=== PATIENT | male | born 1980 | race Caucasian/White ===

== ENCOUNTER 2017-07-25 15:43 | Inpatient (IN) | payer OTHER ==
[2017-07-25 17:33] VITALS: BMI 21.9
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
[2017-07-25] MEDS ORDERED: NICOTINE POLACRILEX 2 MG GUM BC PRN (20:34)
[2017-07-25] MEDS ORDERED: MAGNESIUM HYDROX 2400MG/30ML ORAL SUSPENSION 30 ML CUP PO PRN (20:34)
[2017-07-25] MEDS ORDERED: MAG HYDROX/AL HYDROX/SIMETH 30 ML UNIT-DOSE CUP PO PRN (20:34)
[2017-07-25] MEDS ORDERED: MENTHOL/PHENOL 1 EACH UD MM PRN (20:34)
[2017-07-25] MEDS ORDERED: ACETAMINOPHEN 325 MG TABLET (FP) PO PRN (20:34)
[2017-07-25] MEDS ORDERED: diphenhydrAMINE HCL 50 MG CAPSULE PO PRN (20:34)
[2017-07-25] MEDS ORDERED: guaiFENesin/D-METHORPHAN HB 10 ML UNIT-DOSE CUPS PO PRN (20:34)
[2017-07-25] MEDS ORDERED: METHADONE HCL 10 MG TABLET (FOR DETOX USE ONLY) PO ONE ×2 (20:34→23:00)
[2017-07-25] MEDS ORDERED: hydrOXYzine PAMOATE 50 MG CAPSULE (FP) PO PRN (20:34)
[2017-07-25] MEDS ORDERED: LOPERAMIDE HCL 2 MG CAPSULE PO PRN (20:34)
[2017-07-25] MEDS ORDERED: IBUPROFEN 400 MG TABLET (FP) PO PRN (20:34)
[2017-07-25] MEDS ORDERED: MAGNESIUM CITRATE 300 ML BOTTLE PO PRN (20:34)
[2017-07-25] MEDS ORDERED: P-EPHED 60MG/TRIPROLIDI 2.5MG TABLET PO PRN (20:34)
[2017-07-25] MEDS ORDERED: METHADONE HCL 10 MG TABLET (FOR DETOX USE ONLY) ONE (22:39)
[2017-07-25] MEDS: THIAMINE HCL 100 MG TABLET (FP) PO SCH (22:40)
[2017-07-25] MEDS: diazePAM 5 MG TABLET PO PRN (22:41)
[2017-07-26 01:24] LABS: URINE APPEARANCE SLCLOUDY; URINE BILIRUBIN NEGATIVE (NEGATIVE); URINE BLOOD NEGATIVE (NEGATIVE); URINE COLOR YELLOW; URINE GLUCOSE (UA) NEGATIVE (NEGATIVE); URINE KETONE NEGATIVE (NEGATIVE); URINE NITRITE NEGATIVE (NEGATIVE); URINE PROTEIN NEGATIVE (NEGATIVE)
[2017-07-26 08:46] LABS: URINE LEUK ESTERASE Negative (NEGATIVE)
[2017-07-26] MEDS ORDERED: METHADONE HCL 10 MG TABLET (FOR DETOX USE ONLY) PO ONE (10:00)
[2017-07-26 10:19] LABS: MCH 26.4 pg (25.7-33.7); MCHC 31.9 g/dl (32.0-35.9); MEAN CELL VOLUME 82.7 fl (80-96); MEAN PLT VOLUME 9.1 fl (7.5-11.1); PLATELET COUNT 229 K/MM3 (134-434); RDW 15.9 % (11.9-15.9); WHITE BLOOD COUNT 6.6 K/mm3 (4.0-10.0)
[2017-07-26 10:32] LABS: ANION GAP 6 (8-16); CALCIUM 8.4 mg/dL (8.5-10.1); CO2 33 mmol/L (21-32); GLUCOSE,RANDOM 99 mg/dL (74-106)
[2017-07-26 10:36] LABS: ALK PHOS 119 U/L (45-117); BILIRUBIN,TOTAL 0.9 mg/dL (0.2-1.0); CREATININE 0.8 mg/dL (0.7-1.3); SGOT/AST 103 U/L (15-37); SGPT/ALT 298 U/L (12-78); TOT PROT 6.3 g/dl (6.4-8.2)
--- NOTE | 2017-07-26 10:45 | EKG ---
Test Reason : Blood Pressure : / mmHG Vent. Rate : 069 BPM Atrial Rate : 069 BPM P-R Int : 112 ms QRS Dur : 098 ms QT Int : 374 ms P-R-T Axes : 056 073 034 degrees QTc Int : 400 ms NORMAL SINUS RHYTHM VOLTAGE CRITERIA FOR LEFT VENTRICULAR HYPERTROPHY ABNORMAL ECG NO PREVIOUS ECGS AVAILABLE Confirmed by BENIGNO BENITEZ MD ([id number]) on 07/26/2017 10:45:08 AM Referred By: Confirmed By:BENIGNO BENITEZ MD
[2017-07-26] MEDS: PRENATAL VITAMINS W/ FOLIC ACID TABLET (FP) PO SCH (10:55)
--- NOTE | 2017-07-26 10:59 | PN ---
S CIWA - CIWA Score Nausea/Vomitin Muscle Tremors: 3 Anxiety: 3 Agitation: 2 Paroxysmal Sweats: 1-Minimal Palms Moist Orientation: 0-Oriented Tacttile Disturbances: 1-Very Mild Itch/Numbness Auditory Disturbances: 1-Very Mild Visual Disturbances: 0-None Headache: 2-Mild CIWA-Ar Total Score: 16 BHS COWS - Scale Resting Pulse: 0= [place] 80 or Below Sweatin= Chills/Flushing Restless Observation: 3= Extraneous Movement Pupil Size: 1= Pupils >than Normal Bone or Joint Aches: 2= Severe Diffuse Aches Runny Nose/ Eye Tearin= Runny Nose/Eyes GI Upset > 30mins: 3= Vomiting/Diarrhea Tremor Observation of Outstretched Hands: 2= Slight Tremor Visible Yawning Observation: 1= 1-2x During Session Anxiety or Irritability: 2=Irritable/Anxious Goose Flesh Skin: 0=Smooth Skin COWS Score: 17 S Progress Note (SOAP) Subjective: alert,irritable,anxious,interrupted sleep,tremor,tremor,pain in body,joint and back Objective: 07/26/17 10:57 Vital Signs Temperature 96.6 F L 07/26/17 10:00 Pulse Rate 69 07/26/17 10:00 Respiratory Rate 18 07/26/17 10:00 Blood Pressure 111/65 07/26/17 10:00 O2 Sat by Pulse Oximetry (%) ekg nsr lvh no chest pain,no sob,no dizziness Laboratory Last Values WBC 6.6 K/mm3 (4.0-10.0) 07/26/17 07:00 RBC 4.62 M/mm3 (4.00-5.60) 07/26/17 07:00 Hgb 12.2 GM/dL (11.7-16.9) 07/26/17 07:00 Hct 38.3 % (35.4-49) 07/26/17 07:00 MCV 82.7 fl (80-96) 07/26/17 07:00 MCH 26.4 pg (25.7-33.7) 07/26/17 07:00 MCHC 31.9 g/dl (32.0-35.9) L 07/26/17 07:00 RDW 15.9 % (11.9-15.9) 07/26/17 07:00 Plt Count 229 K/MM3 (134-434) 07/26/17 07:00 MPV 9.1 fl (7.5-11.1) 07/26/17 07:00 Sodium 141 mmol/L (136-145) 07/26/17 07:00 Potassium 3.8 mmol/L (3.5-5.1) 07/26/17 07:00 Chloride 102 mmol/L (98-107) 07/26/17 07:00 Carbon Dioxide 33 mmol/L (21-32) H 07/26/17 07:00 Anion Gap 6 (8-16) L 07/26/17 07:00 BUN 26 mg/dL (7-18) H 07/26/17 07:00 Creatinine 0.8 mg/dL (0.7-1.3) 07/26/17 07:00 Creat Clearance w eGFR > 60 (>60) 07/26/17 07:00 Random Glucose 99 mg/dL (74-106) 07/26/17 07:00 Calcium 8.4 mg/dL (8.5-10.1) L 07/26/17 07:00 Total Bilirubin 0.9 mg/dL (0.2-1.0) 07/26/17 07:00 AST 103 U/L (15-37) H 07/26/17 07:00 ALT 298 U/L (12-78) H 07/26/17 07:00 Alkaline Phosphatase 119 U/L (45-117) H 07/26/17 07:00 Total Protein 6.3 g/dl (6.4-8.2) L 07/26/17 07:00 Albumin 3.0 g/dl (3.4-5.0) L 07/26/17 07:00 Urine Color Yellow 07/25/17 22:39 Urine Appearance Slcloudy 07/25/17 22:39 Urine pH 7.0 (5.0-8.0) 07/25/17 22:39 Ur Specific [place] 1.015 (1.005-1.025) 07/25/17 22:39 Urine Protein Negative (NEGATIVE) 07/25/17 22:39 Urine Glucose (UA) Negative (NEGATIVE) 07/25/17 22:39 Urine Ketones Negative (NEGATIVE) 07/25/17 22:39 Urine Blood Negative (NEGATIVE) 07/25/17 22:39 Urine Nitrite Negative (NEGATIVE) 07/25/17 22:39 Urine Bilirubin Negative (NEGATIVE) 07/25/17 22:39 Urine Urobilinogen 2.0 mg/dL (0.2-1.0) 07/25/17 22:39 Ur Leukocyte Esterase Negative (NEGATIVE) 07/25/17 22:39 Assessment: 07/26/17 10:59 withdrawal symptom Plan: continue detox,d/c tylenol for elevation of alt,ast,repeat alt,ast,inr in am
--- NOTE | 2017-07-26 16:32 | CONSULT ---
[facility] Psychiatric Consult - Data Date of interview: 07/26/17 Admission source: [facility] Identifying data: This is 37 years old male with no psychiatric hospitalization history intoxicated with: Cannabis, Opioids and Xanax Substance Abuse History: - Smoking Cessation. Smoking history: Current every day smoker. Have you smoked in the past 12 months: Yes. Aproximately how many cigarettes per day: 5. Hx Chewing Tobacco Use: No. Initiated information on smoking cessation: Yes. 'Breaking Loose' booklet given: 07/25/17. - Substance & Tx. History. Hx Alcohol Use: No. Hx Substance Use: Yes (Heroin, Marjuana). Substance Use Type: Heroin. Hx Substance Use Treatment: Yes ([facility] - Substances Abused. Heroin. Route: Injection. Frequency: Daily. Amount used: 15 bags. Age of first use: 35. Date of Last Use: 07/25/17. Marijuana/Hashish. Route: Smoking. Frequency: Daily. Amount used: 5 grams. Age of first use: 12. Date of Last Use: 07/24/17 Medical History: Denioes significant medical problem Psychiatric History: Patient rep[orts insomnia, reports taking prior to admission:'Remeron 15mg po qhs Physical/Sexual Abuse/Trauma History: Denies Additional Comment: Remeron 15mg po qhs Mental Status Exam - Mental Status Exam Alert and Oriented to: Person Cognitive Function: Fair Patient Appearance: Unkempt Mood: Euthymic Affect: Mood Congruent Patient Behavior: Cooperative Speech Pattern: Appropriate Voice Loudness: Normal Thought Process: Goal Oriented Thought Disorder: Being Controlled Hallucinations: Denies Suicidal Ideation: Denies Homicidal Ideation: Denies Insight/Judgement: Fair Sleep: Difficulty falling asleep Appetite: Weight loss Muscle strength/Tone: Normal Gait/Station: Normal Additional Comments: Remeron 15mg po qhs Psychiatric Findings - Problem List ([place] 1, 2,3) (1) Cannabis dependence, uncomplicated Current Visit: Yes Status: Acute (2) Opioid dependence with withdrawal Current Visit: Yes Status: Acute (3) Sedative, hypnotic or anxiolytic dependence with withdrawal, uncomplicated Current Visit: Yes Status: Acute - Initial Treatment Plan Initial Treatment Plan: Remeron 15mg po qhs
[2017-07-26] MEDS: MIRTAZAPINE 15 MG TABLET (FP) PO SCH (22:56)
[2017-07-26] MEDS: THIAMINE HCL 100 MG TABLET (FP) PO SCH (22:56)
[2017-07-27] MEDS ORDERED: METHADONE HCL 5 MG TABLET (FOR DETOX USE ONLY) PO ONE (10:00)
[2017-07-27 10:03] LABS: SGOT/AST 40 U/L (15-37); SGPT/ALT 188 U/L (12-78)
[2017-07-27 10:38] LABS: INR 0.89 (0.82-1.09); PROTHROMBIN TIME (PATIENT) 10.1 SEC (9.98-11.88)
[2017-07-27] MEDS: PRENATAL VITAMINS W/ FOLIC ACID TABLET (FP) PO SCH (11:11)
--- NOTE | 2017-07-27 11:42 | PN ---
S CIWA - CIWA Score Nausea/Vomitin Muscle Tremors: 3 Anxiety: 2 Agitation: 2 Paroxysmal Sweats: 1-Minimal Palms Moist Orientation: 0-Oriented Tacttile Disturbances: 1-Very Mild Itch/Numbness Auditory Disturbances: 1-Very Mild Visual Disturbances: 0-None Headache: 2-Mild CIWA-Ar Total Score: 15 BHS COWS - Scale Resting Pulse: 0= [place] 80 or Below Sweatin= Chills/Flushing Restless Observation: 3= Extraneous Movement Pupil Size: 1= Pupils >than Normal Bone or Joint Aches: 2= Severe Diffuse Aches Runny Nose/ Eye Tearin= Runny Nose/Eyes GI Upset > 30mins: 2= Nausea/Diarrhea Tremor Observation of Outstretched Hands: 2= Slight Tremor Visible Yawning Observation: 1= 1-2x During Session Anxiety or Irritability: 2=Irritable/Anxious Goose Flesh Skin: 0=Smooth Skin COWS Score: 16 S Progress Note (SOAP) Subjective: ALERT,IRRITABLE,ANXIOUS,INTERRUPTED SLEEP,TREMOR,PAIN IN THE BODY AND BACK Objective: 07/27/17 11:39 Vital Signs Temperature 97.3 F L 07/27/17 06:00 Pulse Rate 67 07/27/17 10:00 Respiratory Rate 18 07/27/17 10:00 Blood Pressure 128/78 07/27/17 10:00 O2 Sat by Pulse Oximetry (%) 07/27/17 11:40 07/27/17 11:40 Laboratory Last Values WBC 6.6 K/mm3 (4.0-10.0) 07/26/17 07:00 RBC 4.62 M/mm3 (4.00-5.60) 07/26/17 07:00 Hgb 12.2 GM/dL (11.7-16.9) 07/26/17 07:00 Hct 38.3 % (35.4-49) 07/26/17 07:00 MCV 82.7 fl (80-96) 07/26/17 07:00 MCH 26.4 pg (25.7-33.7) 07/26/17 07:00 MCHC 31.9 g/dl (32.0-35.9) L 07/26/17 07:00 RDW 15.9 % (11.9-15.9) 07/26/17 07:00 Plt Count 229 K/MM3 (134-434) 07/26/17 07:00 MPV 9.1 fl (7.5-11.1) 07/26/17 07:00 PT with INR 10.10 SEC (9.98-11.88) 07/27/17 07:00 INR 0.89 (0.82-1.09) 07/27/17 07:00 Sodium 141 mmol/L (136-145) 07/26/17 07:00 Potassium 3.8 mmol/L (3.5-5.1) 07/26/17 07:00 Chloride 102 mmol/L (98-107) 07/26/17 07:00 Carbon Dioxide 33 mmol/L (21-32) H 07/26/17 07:00 Anion Gap 6 (8-16) L 07/26/17 07:00 BUN 26 mg/dL (7-18) H 07/26/17 07:00 Creatinine 0.8 mg/dL (0.7-1.3) 07/26/17 07:00 Creat Clearance w eGFR > 60 (>60) 07/26/17 07:00 Random Glucose 99 mg/dL (74-106) 07/26/17 07:00 Calcium 8.4 mg/dL (8.5-10.1) L 07/26/17 07:00 Total Bilirubin 0.9 mg/dL (0.2-1.0) 07/26/17 07:00 AST 40 U/L (15-37) H D 07/27/17 07:00 ALT 188 U/L (12-78) H D 07/27/17 07:00 Alkaline Phosphatase 119 U/L (45-117) H 07/26/17 07:00 Total Protein 6.3 g/dl (6.4-8.2) L 07/26/17 07:00 Albumin 3.0 g/dl (3.4-5.0) L 07/26/17 07:00 Urine Color Yellow 07/25/17 22:39 Urine Appearance Slcloudy 07/25/17 22:39 Urine pH 7.0 (5.0-8.0) 07/25/17 22:39 Ur Specific [place] 1.015 (1.005-1.025) 07/25/17 22:39 Urine Protein Negative (NEGATIVE) 07/25/17 22:39 Urine Glucose (UA) Negative (NEGATIVE) 07/25/17 22:39 Urine Ketones Negative (NEGATIVE) 07/25/17 22:39 Urine Blood Negative (NEGATIVE) 07/25/17 22:39 Urine Nitrite Negative (NEGATIVE) 07/25/17 22:39 Urine Bilirubin Negative (NEGATIVE) 07/25/17 22:39 Urine Urobilinogen 2.0 mg/dL (0.2-1.0) 07/25/17 22:39 Ur Leukocyte Esterase Negative (NEGATIVE) 07/25/17 22:39 RPR Titer Nonreactive (NONREACTIVE) 07/26/17 07:00 Assessment: 07/27/17 11:41 WITHDRAWAL SYMPTOM Plan: CONTINUE DETOX,D/C TYLENOL FOR ELEVATION OF ALT,AST,REPEAT AST,ALT,INR IN AM
[2017-07-27] MEDS: diazePAM 5 MG TABLET PO PRN (22:22)
[2017-07-27] MEDS: THIAMINE HCL 100 MG TABLET (FP) PO SCH (22:22)
[2017-07-27] MEDS: MIRTAZAPINE 15 MG TABLET (FP) PO SCH (22:22)
[2017-07-28] MEDS ORDERED: METHADONE HCL 5 MG TABLET (FOR DETOX USE ONLY) PO ONE (10:00)
[2017-07-28] MEDS: PRENATAL VITAMINS W/ FOLIC ACID TABLET (FP) PO SCH (10:35)
[2017-07-28 11:15] LABS: INR 0.88 (0.82-1.09); PROTHROMBIN TIME (PATIENT) 9.9 SEC (9.98-11.88)
[2017-07-28 11:25] LABS: SGOT/AST 37 U/L (15-37); SGPT/ALT 160 U/L (12-78)
--- NOTE | 2017-07-28 12:35 | PN ---
S Progress Note (SOAP) Subjective: ALERT,IRRITABLE,ANXIOUS,INTERRUPTED SLEEP Objective: 07/28/17 12:32 Vital Signs Temperature 99.8 F H 07/28/17 10:21 Pulse Rate 76 07/28/17 10:21 Respiratory Rate 16 07/28/17 10:21 Blood Pressure 127/84 07/28/17 10:21 O2 Sat by Pulse Oximetry (%) 07/28/17 12:33 Abnormal Lab Results 07/28/17 07/28/17 07:50 07:50 PT with INR 9.90 L ALT 160 H 07/28/17 12:33 Laboratory Last Values WBC 6.6 K/mm3 (4.0-10.0) 07/26/17 07:00 RBC 4.62 M/mm3 (4.00-5.60) 07/26/17 07:00 Hgb 12.2 GM/dL (11.7-16.9) 07/26/17 07:00 Hct 38.3 % (35.4-49) 07/26/17 07:00 MCV 82.7 fl (80-96) 07/26/17 07:00 MCH 26.4 pg (25.7-33.7) 07/26/17 07:00 MCHC 31.9 g/dl (32.0-35.9) L 07/26/17 07:00 RDW 15.9 % (11.9-15.9) 07/26/17 07:00 Plt Count 229 K/MM3 (134-434) 07/26/17 07:00 MPV 9.1 fl (7.5-11.1) 07/26/17 07:00 PT with INR 9.90 SEC (9.98-11.88) L 07/28/17 07:50 INR 0.88 (0.82-1.09) 07/28/17 07:50 Sodium 141 mmol/L (136-145) 07/26/17 07:00 Potassium 3.8 mmol/L (3.5-5.1) 07/26/17 07:00 Chloride 102 mmol/L (98-107) 07/26/17 07:00 Carbon Dioxide 33 mmol/L (21-32) H 07/26/17 07:00 Anion Gap 6 (8-16) L 07/26/17 07:00 BUN 26 mg/dL (7-18) H 07/26/17 07:00 Creatinine 0.8 mg/dL (0.7-1.3) 07/26/17 07:00 Creat Clearance w eGFR > 60 (>60) 07/26/17 07:00 Random Glucose 99 mg/dL (74-106) 07/26/17 07:00 Calcium 8.4 mg/dL (8.5-10.1) L 07/26/17 07:00 Total Bilirubin 0.9 mg/dL (0.2-1.0) 07/26/17 07:00 AST 37 U/L (15-37) 07/28/17 07:50 ALT 160 U/L (12-78) H 07/28/17 07:50 Alkaline Phosphatase 119 U/L (45-117) H 07/26/17 07:00 Total Protein 6.3 g/dl (6.4-8.2) L 07/26/17 07:00 Albumin 3.0 g/dl (3.4-5.0) L 07/26/17 07:00 Urine Color Yellow 07/25/17 22:39 Urine Appearance Slcloudy 07/25/17 22:39 Urine pH 7.0 (5.0-8.0) 07/25/17 22:39 Ur Specific [place] 1.015 (1.005-1.025) 07/25/17 22:39 Urine Protein Negative (NEGATIVE) 07/25/17 22:39 Urine Glucose (UA) Negative (NEGATIVE) 07/25/17 22:39 Urine Ketones Negative (NEGATIVE) 07/25/17 22:39 Urine Blood Negative (NEGATIVE) 07/25/17 22:39 Urine Nitrite Negative (NEGATIVE) 07/25/17 22:39 Urine Bilirubin Negative (NEGATIVE) 07/25/17 22:39 Urine Urobilinogen 2.0 mg/dL (0.2-1.0) 07/25/17 22:39 Ur Leukocyte Esterase Negative (NEGATIVE) 07/25/17 22:39 RPR Titer Nonreactive (NONREACTIVE) 07/26/17 07:00 Assessment: 07/28/17 12:34 WITHDRAWAL SYMPTOM Plan: CONTINUE DETOX
[2017-07-28] MEDS: MIRTAZAPINE 15 MG TABLET (FP) PO SCH (22:32)
[2017-07-28] MEDS: THIAMINE HCL 100 MG TABLET (FP) PO SCH (22:32)
[2017-07-29] MEDS ORDERED: METHADONE HCL 10 MG TABLET (FOR DETOX USE ONLY) PO ONE (10:00)
[2017-07-29] MEDS: PRENATAL VITAMINS W/ FOLIC ACID TABLET (FP) PO SCH (10:39)
--- NOTE | 2017-07-29 11:50 | PN ---
[facility] Progress Note (SOAP) Subjective: ALERT,IRRITABLE,ANXIOUS,INTERRUPTED SLEEP,PAIN IN THE BODY Objective: 07/29/17 11:49 Vital Signs Temperature 97.0 F L 07/29/17 10:00 Pulse Rate 67 07/29/17 10:00 Respiratory Rate 18 07/29/17 10:00 Blood Pressure 128/82 07/29/17 10:00 O2 Sat by Pulse Oximetry (%) 07/29/17 11:49 Assessment: 07/29/17 11:49 WITHDRAWAL SYMPTOM Plan: CONTINUE DETOX,DISCHARGE IN AM
[2017-07-29] MEDS: THIAMINE HCL 100 MG TABLET (FP) PO SCH (22:27)
[2017-07-29] MEDS: MIRTAZAPINE 15 MG TABLET (FP) PO SCH (22:27)
[2017-07-30] MEDS ORDERED: METHADONE HCL 5 MG TABLET (FOR DETOX USE ONLY) PO ONE (06:00)
--- NOTE | 2017-07-30 08:30 | DS ---
[facility] Detox Discharge Summary Admission Date: 07/25/17 Discharge Date: 07/30/17 - History Present History: Cannabis Dependence, Opioid Dependence, Sedative Dependence Pertinent Past History: ASTHMA SEIZURE - Physical Exam Results Vital Signs: Vital Signs Temperature 97.9 F 07/30/17 06:11 Pulse Rate 64 07/30/17 06:11 Respiratory Rate 16 07/30/17 06:11 Blood Pressure 106/64 07/30/17 06:11 O2 Sat by Pulse Oximetry (%) Pertinent Admission Physical Exam Findings: WITHDRAWAL FINDING - Treatment Hospital Course: Detox Protocol Followed, Detoxed Safely, Responded well, Discharged Condition Good, Rehab Referral Accepted - Medication Discharge Medications: Ambulatory Orders Mirtazapine [Remeron -] 15 mg PO HS #30 tablet 07/26/17 - Diagnosis (1) Opioid dependence with withdrawal Current Visit: Yes Status: Acute (2) Cannabis dependence, uncomplicated Current Visit: Yes Status: Acute (3) Sedative, hypnotic or anxiolytic dependence with withdrawal, uncomplicated Current Visit: Yes Status: Acute (4) Asthma Current Visit: No Status: Chronic (5) Seizure Current Visit: No Status: Chronic - AMA Did Patient Leave Against Medical Advice: No
[2017-07-30 09:38] VITALS: BP 117/75; PULSE 73; TEMP 97
[2017-07-30] MEDS: PRENATAL VITAMINS W/ FOLIC ACID TABLET (FP) PO SCH (10:33)
== END 2017-07-30 11:34 | disposition home or self-care (01) | DRG 773 ==
LOC: YASAS 15:43 → Y6N 21:10
PROVIDERS: ADMIT Internal Medicine; ATTEND Internal Medicine
PROC: HZ2ZZZZ Detoxification Services for Substance Abuse Treatment (ICD-10-PCS; principal; 2017-07-25)
DX: F11.23 Opioid dependence with withdrawal (principal); F13.230 Sedative, hypnotic or anxiolytic dependence with withdrawal, uncomplicated; F12.20 Cannabis dependence, uncomplicated; J45.909 Unspecified asthma, uncomplicated; Z86.69 Personal history of other diseases of the nervous system and sense organs
CPT/HCPCS: 36415; 80053; 81003; 84450; 84460; 85027; 85610; 86593; 93005; 93010

== ENCOUNTER 2017-11-02 12:05 | Inpatient (IN) | payer OTHER ==
[2017-11-02 14:06] VITALS: BMI 22.8
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
[2017-11-02] MEDS ORDERED: MENTHOL/PHENOL 1 EACH UD MM PRN (17:31)
[2017-11-02] MEDS ORDERED: P-EPHED 60MG/TRIPROLIDI 2.5MG TABLET PO PRN (17:31)
[2017-11-02] MEDS ORDERED: IBUPROFEN 400 MG TABLET (FP) PO PRN (17:31)
[2017-11-02] MEDS ORDERED: MAG HYDROX/AL HYDROX/SIMETH 30 ML UNIT-DOSE CUP PO PRN (17:31)
[2017-11-02] MEDS ORDERED: MAGNESIUM CITRATE 300 ML BOTTLE PO PRN (17:31)
[2017-11-02] MEDS ORDERED: guaiFENesin/D-METHORPHAN HB 10 ML UNIT-DOSE CUPS PO PRN (17:31)
[2017-11-02] MEDS ORDERED: MAGNESIUM HYDROX 2400MG/30ML ORAL SUSPENSION 30 ML CUP PO PRN (17:31)
[2017-11-02] MEDS ORDERED: LOPERAMIDE HCL 2 MG CAPSULE PO PRN (17:31)
[2017-11-02] MEDS ORDERED: ACETAMINOPHEN 325 MG TABLET (FP) PO PRN (17:31)
[2017-11-02] MEDS ORDERED: ALBUTEROL SO4 18 GM HFA INHALER IH PRN (17:37)
[2017-11-02] MEDS: diazePAM 5 MG TABLET PO PRN (18:59)
[2017-11-02] MEDS ORDERED: METHADONE HCL 10 MG TABLET (FOR DETOX USE ONLY) PO ONE ×2 (19:00→23:00)
[2017-11-02] MEDS: THIAMINE HCL 100 MG TABLET (FP) PO SCH (23:04)
[2017-11-03 02:11] LABS: URINE APPEARANCE TURBID; URINE BILIRUBIN NEGATIVE (NEGATIVE); URINE BLOOD NEGATIVE (NEGATIVE); URINE COLOR YELLOW; URINE GLUCOSE (UA) NEGATIVE (NEGATIVE); URINE KETONE NEGATIVE (NEGATIVE); URINE LEUK ESTERASE NEGATIVE (NEGATIVE); URINE NITRITE NEGATIVE (NEGATIVE)
[2017-11-03 02:16] LABS: URINE PROTEIN 1+ (NEGATIVE)
[2017-11-03] MEDS ORDERED: METHADONE HCL 10 MG TABLET (FOR DETOX USE ONLY) PO ONE (10:00)
--- NOTE | 2017-11-03 10:45 | PN ---
BHS COWS - Scale Resting Pulse: 0= [place] 80 or Below Sweatin= Chills/Flushing Restless Observation: 3= Extraneous Movement Pupil Size: 1= Pupils >than Normal Bone or Joint Aches: 2= Severe Diffuse Aches Runny Nose/ Eye Tearin= Runny Nose/Eyes GI Upset > 30mins: 2= Nausea/Diarrhea Tremor Observation of Outstretched Hands: 2= Slight Tremor Visible Yawning Observation: 1= 1-2x During Session Anxiety or Irritability: 2=Irritable/Anxious Goose Flesh Skin: 0=Smooth Skin COWS Score: 16 S Progress Note (SOAP) Subjective: ALERT,IRRITABLE,ANXIOUS,INTERRUPTED SLEEP,TREMOR,PAIN IN THE BODY AND BACK Objective: 11/03/17 10:42 Vital Signs Temperature 98.1 F 11/03/17 10:05 Pulse Rate 74 11/03/17 10:05 Respiratory Rate 16 11/03/17 10:05 Blood Pressure 126/71 11/03/17 10:05 O2 Sat by Pulse Oximetry (%) 11/03/17 10:43 EKG NSR,INVERTED T IN 3 NO CHEST PAIN,NO SOB,NO DIZZINESS Laboratory Last Values Urine Color Yellow 11/02/17 22:44 Urine Appearance Turbid 11/02/17 22:44 Urine pH 5.0 (5.0-8.0) D 11/02/17 22:44 Ur Specific [place] 1.029 (1.001-1.035) 11/02/17 22:44 Urine Protein 1+ (NEGATIVE) H 11/02/17 22:44 Urine Glucose (UA) Negative (NEGATIVE) 11/02/17 22:44 Urine Ketones Negative (NEGATIVE) 11/02/17 22:44 Urine Blood Negative (NEGATIVE) 11/02/17 22:44 Urine Nitrite Negative (NEGATIVE) 11/02/17 22:44 Urine Bilirubin Negative (NEGATIVE) 11/02/17 22:44 Urine Urobilinogen 2.0 mg/dL (0.2-1.0) 11/02/17 22:44 Ur Leukocyte Esterase Negative (NEGATIVE) 11/02/17 22:44 Urine WBC (Auto) None /hpf (3-5) 11/02/17 22:44 Urine RBC (Auto) 4 /hpf (0-3) 11/02/17 22:44 LAB PENDING Assessment: 11/03/17 10:44 WITHDRAWAL SYMPTOM Plan: CONTINUE DETOX
[2017-11-03 10:50] LABS: HEMATOCRIT 39.7 % (35.4-49); HEMOGLOBIN 12.8 GM/dL (11.7-16.9); MCH 27.4 pg (25.7-33.7); MCHC 32.2 g/dl (32.0-35.9); MEAN CELL VOLUME 84.9 fl (80-96); MEAN PLT VOLUME 10.4 fl (7.5-11.1); PLATELET COUNT 204 K/MM3 (134-434); RBC 4.68 M/mm3 (4.00-5.60); RDW 14.7 % (11.9-15.9); WHITE BLOOD COUNT 9.8 K/mm3 (4.0-10.0)
[2017-11-03] MEDS: RANITIDINE HCL 150 MG TABLET (FP) PO SCH (10:51)
[2017-11-03] MEDS: diazePAM 5 MG TABLET PO PRN (10:52)
[2017-11-03] MEDS: PRENATAL VITAMINS W/ FOLIC ACID TABLET (FP) PO SCH (10:52)
[2017-11-03 11:12] LABS: ANION GAP 6 (8-16); BLOOD UREA NITROGEN 16 mg/dL (7-18); CALCIUM 8.9 mg/dL (8.5-10.1); CHLORIDE 92 mmol/L (98-107); CO2 35 mmol/L (21-32); CREATININE 0.9 mg/dL (0.7-1.3); GLUCOSE,RANDOM 89 mg/dL (74-106); POTASSIUM 3.6 mmol/L (3.5-5.1); SGOT/AST 32 U/L (15-37); SGPT/ALT 62 U/L (12-78); SODIUM 133 mmol/L (136-145)
[2017-11-03 11:13] LABS: ALK PHOS 89 U/L (45-117); BILIRUBIN,TOTAL 1.2 mg/dL (0.2-1.0); TOT PROT 7.3 g/dl (6.4-8.2)
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
[2017-11-03] MEDS: QUEtiapine FUMARATE 100 MG TABLET (FP) PO SCH (22:44)
[2017-11-03] MEDS: THIAMINE HCL 100 MG TABLET (FP) PO SCH (22:44)
[2017-11-04] MEDS ORDERED: METHADONE HCL 5 MG TABLET (FOR DETOX USE ONLY) PO ONE (10:00)
[2017-11-04] MEDS: diazePAM 5 MG TABLET PO PRN (10:55)
[2017-11-04] MEDS: RANITIDINE HCL 150 MG TABLET (FP) PO SCH (10:55)
[2017-11-04] MEDS: PRENATAL VITAMINS W/ FOLIC ACID TABLET (FP) PO SCH (10:55)
--- NOTE | 2017-11-04 13:22 | EKG ---
Test Reason : Blood Pressure : / mmHG Vent. Rate : 074 BPM Atrial Rate : 074 BPM P-R Int : 134 ms QRS Dur : 092 ms QT Int : 370 ms P-R-T Axes : 056 055 006 degrees QTc Int : 410 ms NORMAL SINUS RHYTHM NONSPECIFIC T WAVE ABNORMALITY ABNORMAL ECG WHEN COMPARED WITH ECG OF 25-JUL-2017 21:48, INVERTED T WAVES HAVE REPLACED NONSPECIFIC T WAVE ABNORMALITY IN INFERIOR LEADS T WAVE INVERSION MORE EVIDENT IN ANTERIOR LEADS CLINICAL CORRELATION IS RECOMMENDED BASELINE ARTIFACT Confirmed by SUDHA PURI, ANAHI ([id number]) on 11/04/2017 1:21:56 PM Referred By: Confirmed By:ANAHI HALEY MD
[2017-11-04] MEDS ORDERED: METHOCARBAMOL 500 MG TABLET PO ONE (14:55)
--- NOTE | 2017-11-04 15:01 | PN ---
BHS COWS - Scale Resting Pulse: 0= [place] 80 or Below Sweatin= Chills/Flushing Restless Observation: 3= Extraneous Movement Pupil Size: 0= Normal to Room Light Bone or Joint Aches: 2= Severe Diffuse Aches Runny Nose/ Eye Tearin= Runny Nose/Eyes GI Upset > 30mins: 1= Stomach Cramp Tremor Observation of Outstretched Hands: 2= Slight Tremor Visible Yawning Observation: 0= None Anxiety or Irritability: 2=Irritable/Anxious Goose Flesh Skin: 0=Smooth Skin COWS Score: 13 BHS Progress Note (SOAP) Subjective: joint aches sweat tremor irritable agitation anxiety right lateral eye brow cyst removed 10/14/17, follow up appointment 11/2017 patient states that he has to call and make an appointment in Nov 2017 Objective: 11/04/17 14:58 Vital Signs Temperature 98.1 F 11/04/17 10:08 Pulse Rate 68 11/04/17 10:08 Respiratory Rate 18 11/04/17 10:08 Blood Pressure 119/65 11/04/17 10:08 O2 Sat by Pulse Oximetry (%) Laboratory Last Values WBC 9.8 K/mm3 (4.0-10.0) D 11/03/17 06:00 RBC 4.68 M/mm3 (4.00-5.60) 11/03/17 06:00 Hgb 12.8 GM/dL (11.7-16.9) 11/03/17 06:00 Hct 39.7 % (35.4-49) 11/03/17 06:00 MCV 84.9 fl (80-96) 11/03/17 06:00 MCH 27.4 pg (25.7-33.7) 11/03/17 06:00 MCHC 32.2 g/dl (32.0-35.9) 11/03/17 06:00 RDW 14.7 % (11.9-15.9) 11/03/17 06:00 Plt Count 204 K/MM3 (134-434) 11/03/17 06:00 MPV 10.4 fl (7.5-11.1) D 11/03/17 06:00 Sodium 133 mmol/L (136-145) L 11/03/17 06:00 Potassium 3.6 mmol/L (3.5-5.1) 11/03/17 06:00 Chloride 92 mmol/L (98-107) L 11/03/17 06:00 Carbon Dioxide 35 mmol/L (21-32) H 11/03/17 06:00 Anion Gap 6 (8-16) L 11/03/17 06:00 BUN 16 mg/dL (7-18) D 11/03/17 06:00 Creatinine 0.9 mg/dL (0.7-1.3) 11/03/17 06:00 Creat Clearance w eGFR > 60 (>60) 11/03/17 06:00 Random Glucose 89 mg/dL (74-106) 11/03/17 06:00 Calcium 8.9 mg/dL (8.5-10.1) 11/03/17 06:00 Total Bilirubin 1.2 mg/dL (0.2-1.0) H D 11/03/17 06:00 AST 32 U/L (15-37) 11/03/17 06:00 ALT 62 U/L (12-78) D 11/03/17 06:00 Alkaline Phosphatase 89 U/L (45-117) D 11/03/17 06:00 Total Protein 7.3 g/dl (6.4-8.2) 11/03/17 06:00 Albumin 4.0 g/dl (3.4-5.0) D 11/03/17 06:00 Urine Color Yellow 11/02/17 22:44 Urine Appearance Turbid 11/02/17 22:44 Urine pH 5.0 (5.0-8.0) D 11/02/17 22:44 Ur Specific [place] 1.029 (1.001-1.035) 11/02/17 22:44 Urine Protein 1+ (NEGATIVE) H 11/02/17 22:44 Urine Glucose (UA) Negative (NEGATIVE) 11/02/17 22:44 Urine Ketones Negative (NEGATIVE) 11/02/17 22:44 Urine Blood Negative (NEGATIVE) 11/02/17 22:44 Urine Nitrite Negative (NEGATIVE) 11/02/17 22:44 Urine Bilirubin Negative (NEGATIVE) 11/02/17 22:44 Urine Urobilinogen 2.0 mg/dL (0.2-1.0) 11/02/17 22:44 Ur Leukocyte Esterase Negative (NEGATIVE) 11/02/17 22:44 Urine WBC (Auto) None /hpf (3-5) 11/02/17 22:44 Urine RBC (Auto) 4 /hpf (0-3) 11/02/17 22:44 RPR Titer Nonreactive (NONREACTIVE) 11/03/17 06:00 lab noted Assessment: 11/04/17 15:01 withdrawal sx suture intact left lateral eye brow no signs of infection denies pain Plan: continue detox patient understands that he has to call for appointment after detox completion
[2017-11-04] MEDS: THIAMINE HCL 100 MG TABLET (FP) PO SCH (22:39)
[2017-11-04] MEDS: QUEtiapine FUMARATE 100 MG TABLET (FP) PO SCH (22:39)
[2017-11-05] MEDS ORDERED: METHADONE HCL 5 MG TABLET (FOR DETOX USE ONLY) PO ONE (10:00)
--- NOTE | 2017-11-05 10:12 | PN ---
BHS Progress Note (SOAP) Subjective: ALERT,IRRITABLE,ANXIOUS,INTERRUPTED SLEEP,PAIN IN THE BODY AND BACK Objective: 11/05/17 10:11 Vital Signs Temperature 97.7 F 11/05/17 10:09 Pulse Rate 76 11/05/17 10:09 Respiratory Rate 18 11/05/17 10:09 Blood Pressure 127/79 11/05/17 10:09 O2 Sat by Pulse Oximetry (%) Assessment: 11/05/17 10:12 WITHDRAWAL SYMPTOM Plan: CONTINUE DETOX
[2017-11-05] MEDS: RANITIDINE HCL 150 MG TABLET (FP) PO SCH (10:25)
[2017-11-05] MEDS: PRENATAL VITAMINS W/ FOLIC ACID TABLET (FP) PO SCH (10:25)
[2017-11-05] MEDS: QUEtiapine FUMARATE 100 MG TABLET (FP) PO SCH (22:07)
[2017-11-05] MEDS: THIAMINE HCL 100 MG TABLET (FP) PO SCH (22:07)
[2017-11-06] MEDS ORDERED: METHADONE HCL 10 MG TABLET (FOR DETOX USE ONLY) PO ONE (10:00)
--- NOTE | 2017-11-06 10:40 | PN ---
S Progress Note (SOAP) Subjective: ALERT,IRRITABLE,ANXIOUS,INTERRUPTED SLEEP Objective: 11/06/17 10:39 Vital Signs Temperature 98.1 F 11/06/17 06:00 Pulse Rate 62 11/06/17 06:00 Respiratory Rate 18 11/06/17 06:00 Blood Pressure 108/70 11/06/17 06:00 O2 Sat by Pulse Oximetry (%) Assessment: 11/06/17 10:39 WITHDRAWAL SYMPTOM Plan: CONTINUE DETOX,DISCHARGE IN AM
[2017-11-06] MEDS: PRENATAL VITAMINS W/ FOLIC ACID TABLET (FP) PO SCH (11:12)
[2017-11-06] MEDS: RANITIDINE HCL 150 MG TABLET (FP) PO SCH (11:12)
[2017-11-06] MEDS: THIAMINE HCL 100 MG TABLET (FP) PO SCH (22:47)
[2017-11-06] MEDS: QUEtiapine FUMARATE 100 MG TABLET (FP) PO SCH (22:47)
[2017-11-07] MEDS ORDERED: METHADONE HCL 5 MG TABLET (FOR DETOX USE ONLY) PO ONE (06:00)
--- NOTE | 2017-11-07 09:12 | DS ---
[facility] Detox Discharge Summary Admission Date: 11/02/17 Discharge Date: 11/07/17 - History Present History: Cannabis Dependence, Opioid Dependence Additional Comments: FOLLOW UP WITH AFTER CARE PROGRAM ARRANGEMENT Pertinent Past History: ASTHMA SEIZURE - Physical Exam Results Vital Signs: Vital Signs Temperature 97.7 F 11/07/17 06:16 Pulse Rate 56 L 11/07/17 06:16 Respiratory Rate 16 11/07/17 06:16 Blood Pressure 119/67 11/07/17 06:16 O2 Sat by Pulse Oximetry (%) Pertinent Admission Physical Exam Findings: WITHDRAWAL SYMPTOM AND FINDING - Treatment Hospital Course: Detox Protocol Followed, Detoxed Safely, Responded well, Discharged Condition Good, Rehab Referral Accepted Patient has Accepted a Rehab Referral to: [facility] - Medication Discharge Medications: Ambulatory Orders Mirtazapine [Remeron -] 15 mg PO HS #30 tablet 07/26/17 Quetiapine Fumarate [Seroquel] 100 mg PO HS #30 tablet 11/03/17 - Diagnosis (1) Opioid dependence with withdrawal Current Visit: Yes Status: Acute (2) Cannabis dependence, uncomplicated Current Visit: Yes Status: Acute (3) Asthma Current Visit: No Status: Chronic (4) Seizure Current Visit: No Status: Chronic (5) Insomnia Current Visit: Yes Status: Acute (6) Substance induced mood disorder Current Visit: Yes Status: Acute - AMA Did Patient Leave Against Medical Advice: No
[2017-11-07 10:00] VITALS: BP 116/69; PULSE 80; TEMP 98.1
[2017-11-07] MEDS: RANITIDINE HCL 150 MG TABLET (FP) PO SCH (11:09)
[2017-11-07] MEDS: PRENATAL VITAMINS W/ FOLIC ACID TABLET (FP) PO SCH (11:09)
== END 2017-11-07 15:34 | disposition home or self-care (01) | DRG 773 ==
LOC: YASAS 12:05 → Y6N 16:16
PROVIDERS: ADMIT Internal Medicine; ATTEND Internal Medicine
PROC: HZ2ZZZZ Detoxification Services for Substance Abuse Treatment (ICD-10-PCS; principal; 2017-11-02)
DX: F11.23 Opioid dependence with withdrawal (principal); F12.20 Cannabis dependence, uncomplicated; F17.210 Nicotine dependence, cigarettes, uncomplicated; F19.24 Other psychoactive substance dependence with psychoactive substance-induced mood disorder; J45.909 Unspecified asthma, uncomplicated; G47.00 Insomnia, unspecified; G40.909 Epilepsy, unspecified, not intractable, without status epilepticus
CPT/HCPCS: 36415; 80053; 81003; 81015; 85027; 86593; 93005; 93010

== ENCOUNTER 2017-12-09 12:50 | Inpatient (IN) | payer OTHER ==
[2017-12-09] MEDS ORDERED: guaiFENesin/D-METHORPHAN HB 10 ML UNIT-DOSE CUPS PO PRN (15:37)
[2017-12-09] MEDS ORDERED: MAGNESIUM CITRATE 300 ML BOTTLE PO PRN (15:37)
[2017-12-09] MEDS ORDERED: ACETAMINOPHEN 325 MG TABLET (FP) PO PRN (15:37)
[2017-12-09] MEDS ORDERED: LOPERAMIDE HCL 2 MG CAPSULE PO PRN (15:37)
[2017-12-09] MEDS ORDERED: MAGNESIUM HYDROX 2400MG/30ML ORAL SUSPENSION 30 ML CUP PO PRN (15:37)
[2017-12-09] MEDS ORDERED: P-EPHED 60MG/TRIPROLIDI 2.5MG TABLET PO PRN (15:37)
[2017-12-09] MEDS ORDERED: MENTHOL/PHENOL 1 EACH UD MM PRN (15:37)
[2017-12-09] MEDS: QUEtiapine FUMARATE 100 MG TABLET (FP) PO SCH (21:04)
[2017-12-09] MEDS: THIAMINE HCL 100 MG TABLET (FP) PO SCH (21:04)
[2017-12-10] MEDS: PRENATAL VITAMINS W/ FOLIC ACID TABLET (FP) PO SCH (09:48)
--- NOTE | 2017-12-10 14:24 | HP ---
Psychiatrist Admission - Data Date of interview: 12/10/17 Admission source: [address] [place] [address] detox Identifying data: This is the [facility] [address] [place] [address] [facility] ot[facility] for this 37 years old H male single father of 1,resides with girlfriend, unemployed,supported by PA. Medical History: Significant for Seizure disorder(head trauma in 2008). Psychiatric History: Patient denies psychiatric history,no psychiatric admissions,no suicidality reported.Patient states that he was taking Seroquel in the past to cope with sleeping difficulties,anxiety while in detox/rehab treatment. Physical/Sexual Abuse/Trauma History: denies Vital Signs: Vital Signs - 24 hr 12/10/17 12/10/17 12/10/17 00:30 03:30 06:39 Temperature 98.2 F Pulse Rate 80 Respiratory 16 18 18 Rate Blood Pressure 115/67 Allergies/Adverse Reactions: Allergies Allergy/AdvReac Type Severity Reaction Status Date / Time No Known Drug Allergies Allergy Verified 12/09/17 13:08 liver AdvReac Severe Vomiting Uncoded 12/09/17 13:08 Date of last physical exam: 12/09/17 Concur with the findings of this exam: Yes - Substance Abuse/Tx History Hx Alcohol Use: No Hx Substance Use: Yes (marijuana since HS,heroin started about 3-4 years ago) Substance Use Type: Heroin, Marijuana Hx Substance Use Treatment: Yes (completed inpatient rehab last year [facility] ) Mental Status Exam - Mental Status Exam Alert and Oriented to: Time, Place, Person Cognitive Function: Grossly Intact Patient Appearance: Unkempt Mood: Sad Affect: Mood Congruent Patient Behavior: Cooperative Speech Pattern: Clear Voice Loudness: Normal Thought Process: Goal Oriented Thought Disorder: Not Present Hallucinations: Denies Suicidal Ideation: Denies Homicidal Ideation: Denies Insight/Judgement: Fair Sleep: Fair Appetite: Good Muscle strength/Tone: Normal Gait/Station: Normal Psychiatric Findings - Problem List ([place] 1, 2,3) (1) Substance induced mood disorder Current Visit: Yes Status: Chronic (2) Asthma Current Visit: Yes Status: Chronic Qualifiers: Asthma severity: mild Asthma persistence: unspecified Asthma complication type: uncomplicated Qualified Code(s): J45.909 - Unspecified asthma, uncomplicated (3) Cannabis dependence, uncomplicated Current Visit: Yes Status: Chronic (4) History of seizure Current Visit: Yes Status: Chronic Comment: Due to Traumatic Head Injury. (5) Nicotine dependence Current Visit: Yes Status: Chronic Qualifiers: Nicotine product type: cigarettes Substance use status: in withdrawal Qualified Code(s): F17.213 - Nicotine dependence, cigarettes, with withdrawal (6) Opioid dependence in controlled environment Current Visit: Yes Status: Chronic - Initial Treatment Plan Initial Treatment Plan: Seroquel 100 mg po hs. will monitor progress.
[2017-12-10] MEDS: THIAMINE HCL 100 MG TABLET (FP) PO SCH (21:02)
[2017-12-10] MEDS: QUEtiapine FUMARATE 100 MG TABLET (FP) PO SCH (21:02)
[2017-12-11] MEDS: PRENATAL VITAMINS W/ FOLIC ACID TABLET (FP) PO SCH (09:42)
[2017-12-11] MEDS: MAG HYDROX/AL HYDROX/SIMETH 30 ML UNIT-DOSE CUP PO PRN (21:08)
[2017-12-11] MEDS: QUEtiapine FUMARATE 100 MG TABLET (FP) PO SCH (21:08)
[2017-12-11] MEDS: THIAMINE HCL 100 MG TABLET (FP) PO SCH (21:08)
[2017-12-12] MEDS: PRENATAL VITAMINS W/ FOLIC ACID TABLET (FP) PO SCH (09:31)
[2017-12-12] MEDS: THIAMINE HCL 100 MG TABLET (FP) PO SCH (21:02)
[2017-12-12] MEDS: QUEtiapine FUMARATE 100 MG TABLET (FP) PO SCH (21:02)
[2017-12-13] MEDS: PRENATAL VITAMINS W/ FOLIC ACID TABLET (FP) PO SCH (10:08)
[2017-12-13] MEDS: MAG HYDROX/AL HYDROX/SIMETH 30 ML UNIT-DOSE CUP PO PRN (21:10)
[2017-12-13] MEDS: THIAMINE HCL 100 MG TABLET (FP) PO SCH (21:10)
[2017-12-13] MEDS: QUEtiapine FUMARATE 100 MG TABLET (FP) PO SCH (21:10)
[2017-12-14] MEDS: PRENATAL VITAMINS W/ FOLIC ACID TABLET (FP) PO SCH (09:32)
[2017-12-14] MEDS: THIAMINE HCL 100 MG TABLET (FP) PO SCH (21:05)
[2017-12-14] MEDS: QUEtiapine FUMARATE 100 MG TABLET (FP) PO SCH (21:05)
[2017-12-15] MEDS: PRENATAL VITAMINS W/ FOLIC ACID TABLET (FP) PO SCH (09:39)
[2017-12-15] MEDS: IBUPROFEN 400 MG TABLET (FP) PO PRN (17:52)
[2017-12-15] MEDS: THIAMINE HCL 100 MG TABLET (FP) PO SCH (21:45)
[2017-12-15] MEDS: QUEtiapine FUMARATE 100 MG TABLET (FP) PO SCH (21:45)
--- NOTE | 2017-12-15 23:33 | PN ---
[facility]ON[facility] Progress Note Note: Patient was seen and examined in bed with complaint of a bulge on his right groin. He states that he has had the bulge intermittently before and it recedes with time but this is the worst it has been. Patient reports history of inguinal hernia which he did not reported on admission. He appears very uncomfortable, anxious and reports pain at 8/10. Dr. Drake notified of patient's condition. Patient is to be transferred to ER for further evaluation.
[2017-12-16] MEDS: PRENATAL VITAMINS W/ FOLIC ACID TABLET (FP) PO SCH (10:14)
[2017-12-16] MEDS: IBUPROFEN 400 MG TABLET (FP) PO PRN (16:56)
[2017-12-16] MEDS: THIAMINE HCL 100 MG TABLET (FP) PO SCH (21:06)
[2017-12-16] MEDS: QUEtiapine FUMARATE 100 MG TABLET (FP) PO SCH (21:06)
[2017-12-17] MEDS: PRENATAL VITAMINS W/ FOLIC ACID TABLET (FP) PO SCH (09:43)
[2017-12-17] MEDS: IBUPROFEN 400 MG TABLET (FP) PO PRN (19:06)
[2017-12-17] MEDS: THIAMINE HCL 100 MG TABLET (FP) PO SCH (21:17)
[2017-12-17] MEDS: QUEtiapine FUMARATE 100 MG TABLET (FP) PO SCH (21:17)
[2017-12-18] MEDS: PRENATAL VITAMINS W/ FOLIC ACID TABLET (FP) PO SCH (09:56)
[2017-12-18] MEDS: IBUPROFEN 400 MG TABLET (FP) PO PRN ×2 (12:39→21:05)
[2017-12-18] MEDS: QUEtiapine FUMARATE 100 MG TABLET (FP) PO SCH (21:05)
[2017-12-18] MEDS: THIAMINE HCL 100 MG TABLET (FP) PO SCH (21:05)
[2017-12-19] MEDS: PRENATAL VITAMINS W/ FOLIC ACID TABLET (FP) PO SCH (09:48)
[2017-12-19] MEDS: THIAMINE HCL 100 MG TABLET (FP) PO SCH (21:03)
[2017-12-19] MEDS: QUEtiapine FUMARATE 100 MG TABLET (FP) PO SCH (21:03)
[2017-12-20] MEDS: PRENATAL VITAMINS W/ FOLIC ACID TABLET (FP) PO SCH (10:03)
[2017-12-20] MEDS: MAG HYDROX/AL HYDROX/SIMETH 30 ML UNIT-DOSE CUP PO PRN (10:03)
[2017-12-20] MEDS: QUEtiapine FUMARATE 100 MG TABLET (FP) PO SCH (21:01)
[2017-12-20] MEDS: THIAMINE HCL 100 MG TABLET (FP) PO SCH (21:01)
[2017-12-21] MEDS: PRENATAL VITAMINS W/ FOLIC ACID TABLET (FP) PO SCH (09:44)
[2017-12-21] MEDS: IBUPROFEN 400 MG TABLET (FP) PO PRN (18:43)
[2017-12-21] MEDS: QUEtiapine FUMARATE 100 MG TABLET (FP) PO SCH (21:07)
[2017-12-21] MEDS: THIAMINE HCL 100 MG TABLET (FP) PO SCH (21:07)
[2017-12-22] MEDS: PRENATAL VITAMINS W/ FOLIC ACID TABLET (FP) PO SCH (09:52)
[2017-12-22] MEDS: IBUPROFEN 400 MG TABLET (FP) PO PRN (14:34)
[2017-12-22] MEDS: THIAMINE HCL 100 MG TABLET (FP) PO SCH (21:04)
[2017-12-22] MEDS: QUEtiapine FUMARATE 100 MG TABLET (FP) PO SCH (21:04)
[2017-12-22] MEDS: MAG HYDROX/AL HYDROX/SIMETH 30 ML UNIT-DOSE CUP PO PRN (21:05)
[2017-12-23] MEDS: PRENATAL VITAMINS W/ FOLIC ACID TABLET (FP) PO SCH (09:36)
[2017-12-23] MEDS: THIAMINE HCL 100 MG TABLET (FP) PO SCH (21:12)
[2017-12-23] MEDS: QUEtiapine FUMARATE 100 MG TABLET (FP) PO SCH (21:12)
[2017-12-24] MEDS: PRENATAL VITAMINS W/ FOLIC ACID TABLET (FP) PO SCH (10:09)
[2017-12-24] MEDS: THIAMINE HCL 100 MG TABLET (FP) PO SCH (21:03)
[2017-12-24] MEDS: QUEtiapine FUMARATE 100 MG TABLET (FP) PO SCH (21:03)
[2017-12-25] MEDS: PRENATAL VITAMINS W/ FOLIC ACID TABLET (FP) PO SCH (09:43)
[2017-12-25] MEDS: QUEtiapine FUMARATE 100 MG TABLET (FP) PO SCH (21:04)
[2017-12-25] MEDS: THIAMINE HCL 100 MG TABLET (FP) PO SCH (21:04)
[2017-12-26] MEDS: PRENATAL VITAMINS W/ FOLIC ACID TABLET (FP) PO SCH (10:15)
--- NOTE | 2017-12-26 15:33 | PN ---
Psychiatric Progress Note Vital Signs: Vital Signs Period Temp Pulse Resp BP Sys/Landry Pulse Ox Last 24 Hr 98.3 F 81 16-19 142/86 Date of Session: 12/26/17 Chief Complaint:: "Discharge" HPI: Pt. admitted to for opioid and nicotine dependence. ROS: Unremarkable Current Medications: Active Medications Generic Name Dose Route Start Last Admin Trade Name Freq PRN Reason Stop Dose Admin Acetaminophen 650 mg 12/09/17 15:37 Tylenol - PO Q4H PRN FEVER Al Hydroxide/Mg Hydroxide 30 ml 12/09/17 15:37 12/22/17 21:05 Mylanta Oral Suspension - PO 30 ml Q6H PRN Administration DYSPEPSIA Eucalyptus/Menthol/Phenol/Sorbitol 1 each 12/09/17 15:37 Cepastat Lozenge - MM Q4H PRN SORE THROAT Guaifenesin 10 ml 12/09/17 15:37 Robitussin Dm - PO Q6H PRN COUGH Ibuprofen 400 mg 12/09/17 15:37 12/22/17 14:34 Motrin - PO 400 mg Q6H PRN Administration Pain Level 4-6 Loperamide HCl 4 mg 12/09/17 15:37 Imodium - PO Q6H PRN DIARRHEA Magnesium Citrate 300 ml 12/09/17 15:37 Citroma - PO Q48H PRN CONSTIPATION Magnesium Hydroxide 30 ml 12/09/17 15:37 Milk Of Magnesia - PO DAILY PRN CONSTIPATION Multivit/Folic Acid/Iron 1 tab 12/10/17 10:00 12/26/17 10:15 Vitamins (Sjr) - PO 1 tab DAILY RICCO Administration Pseudoephedrine/Triprolidine 1 combo 12/09/17 15:37 Actifed - PO TID PRN NASAL CONGESTION Quetiapine Fumarate 100 mg 12/09/17 22:00 12/25/17 21:04 Seroquel - PO 100 mg HS RICCO Administration Thiamine HCl 100 mg 12/09/17 22:00 12/25/17 21:04 Vitamin B1 - PO 100 mg HS RICCO Administration Medication(s) Change(s): No. Current Side Effect: No Lab tests ordered: No Lab tests reviewed: Yes Provider note:: Pt. will complete the rehab program on 12/27/17. He has met his treatment goals and will continue to address his issues in outpatient treatment at the [facility]. Pt. reports taking seroquel 100mg qhs effective. A prescription of seroquel 100mg for 30 days will be sent electronically to [facility] at [address] [place] [address] ( prescription sent by Dr. Calvillo on 12/04/17 to [facility]). Pt. is stable and ready for discharge on 12/27/17. Total face to face time:: 35 Mental Status Exam - Mental Status Exam Alert and Oriented to: Time, Place, Person Cognitive Function: Good Patient Appearance: Well Groomed Mood: Hopeful Affect: Appropriate Patient Behavior: Appropriate, Cooperative Speech Pattern: Clear, Appropriate Voice Loudness: Normal Thought Process: Goal Oriented Thought Disorder: Not Present Hallucinations: Denies Suicidal Ideation: Denies Homicidal Ideation: Denies Insight/Judgement: Fair Sleep: Well Appetite: Good Muscle strength/Tone: Normal Gait/Station: Normal Psychiatric Treatment Plan - Problem List (1) Cannabis dependence, uncomplicated Current Visit: Yes (2) Nicotine dependence Current Visit: Yes Qualifiers: Nicotine product type: cigarettes Substance use status: in withdrawal Qualified Code(s): F17.213 - Nicotine dependence, cigarettes, with withdrawal (3) Opioid dependence in controlled environment Current Visit: Yes
[2017-12-26] MEDS: QUEtiapine FUMARATE 100 MG TABLET (FP) PO SCH (21:04)
[2017-12-26] MEDS: THIAMINE HCL 100 MG TABLET (FP) PO SCH (21:04)
[2017-12-27 07:15] VITALS: BP 128/81; PULSE 87; TEMP 97.2
[2017-12-27] MEDS: PRENATAL VITAMINS W/ FOLIC ACID TABLET (FP) PO SCH (09:11)
== END 2017-12-27 10:50 | disposition home or self-care (01) | DRG 772 ==
LOC: YASAS 12:50 → Y5N 12:51
PROVIDERS: ADMIT Psychiatry & Neurology Psychiatry; ATTEND Psychiatry & Neurology Psychiatry
PROC: HZ42ZZZ Group Counseling for Substance Abuse Treatment, Cognitive-Behavioral (ICD-10-PCS; principal; 2017-12-09)
DX: F11.20 Opioid dependence, uncomplicated (principal); F12.20 Cannabis dependence, uncomplicated; F17.210 Nicotine dependence, cigarettes, uncomplicated; F19.24 Other psychoactive substance dependence with psychoactive substance-induced mood disorder; J45.909 Unspecified asthma, uncomplicated; Z86.69 Personal history of other diseases of the nervous system and sense organs; Z87.820 Personal history of traumatic brain injury

== ENCOUNTER 2018-08-26 13:44 | Inpatient (IN) | payer OTHER ==
[2018-08-26 14:27] VITALS: BMI 21.4
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
[2018-08-26] MEDS ORDERED: MAGNESIUM CITRATE 300 ML BOTTLE PO PRN (15:52)
[2018-08-26] MEDS ORDERED: ACETAMINOPHEN 325 MG TABLET (FP) PO PRN (15:52)
[2018-08-26] MEDS ORDERED: MENTHOL/PHENOL 1 EACH UD MM PRN (15:52)
[2018-08-26] MEDS ORDERED: P-EPHED 60MG/TRIPROLIDI 2.5MG TABLET PO PRN (15:52)
[2018-08-26] MEDS ORDERED: IBUPROFEN 400 MG TABLET (FP) PO PRN (15:52)
[2018-08-26] MEDS ORDERED: guaiFENesin/D-METHORPHAN HB 10 ML UNIT-DOSE CUPS PO PRN (15:52)
[2018-08-26] MEDS ORDERED: LOPERAMIDE HCL 2 MG CAPSULE PO PRN (15:52)
[2018-08-26] MEDS ORDERED: MAGNESIUM HYDROX 2400MG/30ML ORAL SUSPENSION 30 ML CUP PO PRN (15:52)
[2018-08-26] MEDS ORDERED: hydrOXYzine PAMOATE 50 MG CAPSULE (FP) PO PRN (15:52)
[2018-08-26] MEDS ORDERED: MAG HYDROX/AL HYDROX/SIMETH 30 ML UNIT-DOSE CUP PO PRN (15:52)
[2018-08-26] MEDS ORDERED: METHADONE HCL 10 MG TABLET (FOR DETOX USE ONLY) PO ONE ×2 (16:30→23:00)
[2018-08-26] MEDS: diazePAM 5 MG TABLET PO PRN (18:11)
[2018-08-26] MEDS ORDERED: MELATONIN 5 MG TABLETS PO PRN (22:00)
[2018-08-26] MEDS: THIAMINE HCL 100 MG TABLET (FP) PO SCH (22:16)
[2018-08-26 23:08] LABS: URINE APPEARANCE CLEAR; URINE BILIRUBIN NEGATIVE (<2.0 mg/dL); URINE COLOR LTYELLOW; URINE GLUCOSE (UA) NEGATIVE (NEGATIVE); URINE KETONE NEGATIVE (NEGATIVE); URINE LEUK ESTERASE NEGATIVE (NEGATIVE); URINE NITRITE NEGATIVE (NEGATIVE); URINE PROTEIN NEGATIVE (NEGATIVE); URINE UROBILINOGEN NEGATIVE mg/dL (0.2-1.0)
[2018-08-27] MEDS ORDERED: METHADONE HCL 10 MG TABLET (FOR DETOX USE ONLY) PO ONE (10:00)
[2018-08-27] MEDS: PRENATAL VITAMINS W/ FOLIC ACID TABLET (FP) PO SCH (10:06)
[2018-08-27] MEDS: diazePAM 5 MG TABLET PO PRN (10:06)
[2018-08-27] MEDS: cloNIDine HCL 0.1 MG TABLET PO PRN (10:06)
[2018-08-27 10:22] LABS: HEMATOCRIT 39.7 % (35.4-49); HEMOGLOBIN 12.6 GM/dL (11.7-16.9); MCH 26.3 pg (25.7-33.7); MCHC 31.7 g/dl (32.0-35.9); MEAN CELL VOLUME 82.9 fl (80-96); MEAN PLT VOLUME 9.5 fl (7.5-11.1); PLATELET COUNT 224 K/MM3 (134-434); RBC 4.79 M/mm3 (4.00-5.60); RDW 17.8 % (11.9-15.9); WHITE BLOOD COUNT 6.1 K/mm3 (4.0-10.0)
[2018-08-27 10:50] LABS: ALBUMIN 3.4 g/dl (3.4-5.0); ALK PHOS 86 U/L (45-117); ANION GAP 8 MMOL/L (8-16); BILIRUBIN,TOTAL 0.5 mg/dL (0.2-1); BLOOD UREA NITROGEN 22 mg/dL (7-18); CALCIUM 8.9 mg/dL (8.5-10.1); CHLORIDE 101 mmol/L (98-107); CO2 28 mmol/L (21-32); CREATININE 0.7 mg/dL (0.55-1.3); GLUCOSE,RANDOM 74 mg/dL (74-106); POTASSIUM 4.9 mmol/L (3.5-5.1); SGOT/AST 20 U/L (15-37); SGPT/ALT 21 U/L (13-61); SODIUM 138 mmol/L (136-145)
--- NOTE | 2018-08-27 12:59 | PN ---
[facility] COWS - Scale Resting Pulse: 0= [place] 80 or Below Sweatin=Flushed/Facial Moisture Restless Observation: 3= Extraneous Movement Pupil Size: 0= Normal to Room Light Bone or Joint Aches: 2= Severe Diffuse Aches Runny Nose/ Eye Tearin= Runny Nose/Eyes GI Upset > 30mins: 3= Vomiting/Diarrhea Tremor Observation of Outstretched Hands: 2= Slight Tremor Visible Yawning Observation: 1= 1-2x During Session Anxiety or Irritability: 2=Irritable/Anxious Goose Flesh Skin: 0=Smooth Skin COWS Score: 17 S Progress Note (SOAP) Subjective: Body aches, sweating, interrupted sleep Objective: 08/27/18 12:57 Last Vital Signs Temp Pulse Resp BP Pulse Ox 97.6 F 70 18 114/69 08/27/18 09:09 08/27/18 09:09 08/27/18 09:09 08/27/18 09:09 Laboratory Tests 08/26/18 08/27/18 08/27/18 23:00 07:00 07:00 WBC 6.1 RBC 4.79 Hgb 12.6 Hct 39.7 MCV 82.9 MCH 26.3 MCHC 31.7 L RDW 17.8 H Plt Count 224 MPV 9.5 Sodium 138 Potassium 4.9 Chloride 101 Carbon Dioxide 28 Anion Gap 8 BUN 22 H Creatinine 0.7 Creat Clearance w eGFR > 60 Random Glucose 74 Calcium 8.9 Total Bilirubin 0.5 AST 20 ALT 21 Alkaline Phosphatase 86 Total Protein 7.0 Albumin 3.4 Urine Color Ltyellow Urine Appearance Clear Urine pH 5.0 Ur Specific [place] 1.020 Urine Protein Negative Urine Glucose (UA) Negative Urine Ketones Negative Urine Blood Negative Urine Nitrite Negative Urine Bilirubin Negative Urine Urobilinogen Negative Ur Leukocyte Esterase Negative Labs reviewed: bun 22 Assessment: 08/27/18 12:58 Withdrawal symptoms Noted with azotemia Plan: Continue detox Azotemia: encouraged PO water intake for hydration
[2018-08-27] MEDS: THIAMINE HCL 100 MG TABLET (FP) PO SCH (22:16)
[2018-08-28] MEDS ORDERED: METHADONE HCL 5 MG TABLET (FOR DETOX USE ONLY) PO ONE (10:00)
[2018-08-28] MEDS: PRENATAL VITAMINS W/ FOLIC ACID TABLET (FP) PO SCH (10:09)
[2018-08-28] MEDS: diazePAM 5 MG TABLET PO PRN (10:09)
--- NOTE | 2018-08-28 10:37 | PN ---
[facility] COWS - Scale Resting Pulse: 0= [place] 80 or Below Sweatin=Flushed/Facial Moisture Restless Observation: 1= Difficult to Sit Still Pupil Size: 0= Normal to Room Light Bone or Joint Aches: 2= Severe Diffuse Aches Runny Nose/ Eye Tearin= None GI Upset > 30mins: 2= Nausea/Diarrhea Tremor Observation of Outstretched Hands: 2= Slight Tremor Visible Yawning Observation: 1= 1-2x During Session Anxiety or Irritability: 2=Irritable/Anxious Goose Flesh Skin: 0=Smooth Skin COWS Score: 12 BHS Progress Note (SOAP) Subjective: PATIENT C/O ANXIETY, SLEEP DISTURBANCE, SWEATING AND CHILLS. Objective: 08/28/18 10:33 Vital Signs Temperature 97.5 F L 08/28/18 09:21 Pulse Rate 61 08/28/18 09:21 Respiratory Rate 17 08/28/18 09:21 Blood Pressure 126/70 08/28/18 09:21 O2 Sat by Pulse Oximetry (%) Laboratory Tests 08/26/18 08/27/18 08/27/18 23:00 07:00 07:00 WBC 6.1 RBC 4.79 Hgb 12.6 Hct 39.7 MCV 82.9 MCH 26.3 MCHC 31.7 L RDW 17.8 H Plt Count 224 MPV 9.5 Sodium 138 Potassium 4.9 Chloride 101 Carbon Dioxide 28 Anion Gap 8 BUN 22 H Creatinine 0.7 Creat Clearance w eGFR > 60 Random Glucose 74 Calcium 8.9 Total Bilirubin 0.5 AST 20 ALT 21 Alkaline Phosphatase 86 Total Protein 7.0 Albumin 3.4 Urine Color Ltyellow Urine Appearance Clear Urine pH 5.0 Ur Specific [place] 1.020 Urine Protein Negative Urine Glucose (UA) Negative Urine Ketones Negative Urine Blood Negative Urine Nitrite Negative Urine Bilirubin Negative Urine Urobilinogen Negative Ur Leukocyte Esterase Negative RPR Titer 08/27/18 07:00 WBC RBC Hgb Hct MCV MCH MCHC RDW Plt Count MPV Sodium Potassium Chloride Carbon Dioxide Anion Gap BUN Creatinine Creat Clearance w eGFR Random Glucose Calcium Total Bilirubin AST ALT Alkaline Phosphatase Total Protein Albumin Urine Color Urine Appearance Urine pH Ur Specific [place] Urine Protein Urine Glucose (UA) Urine Ketones Urine Blood Urine Nitrite Urine Bilirubin Urine Urobilinogen Ur Leukocyte Esterase RPR Titer Nonreactive PE: ALERT AND ORIENTED X 3 SKIN WARM, +FLUSHED FACIAL MOISTURE EXT FULL ROM, +TREMORS AMB AD SONI Assessment: 08/28/18 10:37 WITHDRAWAL SX Plan: CONTINUE DETOX ENCOURAGE ORAL FLUIDS CONTINUE TO MONITOR CLINICALLY
[2018-08-28] MEDS: THIAMINE HCL 100 MG TABLET (FP) PO SCH (23:09)
[2018-08-29] MEDS ORDERED: METHADONE HCL 5 MG TABLET (FOR DETOX USE ONLY) PO ONE (10:00)
[2018-08-29] MEDS: PRENATAL VITAMINS W/ FOLIC ACID TABLET (FP) PO SCH (10:14)
[2018-08-29] MEDS: diazePAM 5 MG TABLET PO PRN (10:15)
[2018-08-29] MEDS ORDERED: CYCLOBENZAPRINE HCL 10 MG TABLET (FP) PO PRN (10:32)
--- NOTE | 2018-08-29 10:32 | PN ---
[facility] Progress Note Note: PATIENT CONTINUES WITH METHADONE DETOX. ALERT AND ORIENTED X 3. C/O NIGHT SWEATS AND BODY ACHES. Vital Signs Temperature 97.3 F L 08/29/18 09:18 Pulse Rate 58 L 08/29/18 09:18 Respiratory Rate 18 08/29/18 09:18 Blood Pressure 130/77 08/29/18 09:18 O2 Sat by Pulse Oximetry (%) Laboratory Tests 08/26/18 08/27/18 08/27/18 23:00 07:00 07:00 WBC 6.1 RBC 4.79 Hgb 12.6 Hct 39.7 MCV 82.9 MCH 26.3 MCHC 31.7 L RDW 17.8 H Plt Count 224 MPV 9.5 Sodium 138 Potassium 4.9 Chloride 101 Carbon Dioxide 28 Anion Gap 8 BUN 22 H Creatinine 0.7 Creat Clearance w eGFR > 60 Random Glucose 74 Calcium 8.9 Total Bilirubin 0.5 AST 20 ALT 21 Alkaline Phosphatase 86 Total Protein 7.0 Albumin 3.4 Urine Color Ltyellow Urine Appearance Clear Urine pH 5.0 Ur Specific [place] 1.020 Urine Protein Negative Urine Glucose (UA) Negative Urine Ketones Negative Urine Blood Negative Urine Nitrite Negative Urine Bilirubin Negative Urine Urobilinogen Negative Ur Leukocyte Esterase Negative RPR Titer 08/27/18 07:00 WBC RBC Hgb Hct MCV MCH MCHC RDW Plt Count MPV Sodium Potassium Chloride Carbon Dioxide Anion Gap BUN Creatinine Creat Clearance w eGFR Random Glucose Calcium Total Bilirubin AST ALT Alkaline Phosphatase Total Protein Albumin Urine Color Urine Appearance Urine pH Ur Specific [place] Urine Protein Urine Glucose (UA) Urine Ketones Urine Blood Urine Nitrite Urine Bilirubin Urine Urobilinogen Ur Leukocyte Esterase RPR Titer Nonreactive PE: ALERT AND ORIENTED X 3 SKIN WARM AND DRY EXT FULL ROM, NO TREMORS AMB AD SONI WITHDRAWAL SX CONTINUE DETOX FLEXERIL PRN FOR BODY ACHES CONTINUE TO MONITOR
[2018-08-29] MEDS: NYSTATIN 500,000 UNITS/5 ML SUSPENSION PO SCH ×2 (14:04→22:13)
[2018-08-29] MEDS: THIAMINE HCL 100 MG TABLET (FP) PO SCH (22:13)
[2018-08-29] MEDS: cloNIDine HCL 0.1 MG TABLET PO PRN (22:13)
[2018-08-30] MEDS: NYSTATIN 500,000 UNITS/5 ML SUSPENSION PO SCH (07:03)
[2018-08-30] MEDS ORDERED: METHADONE HCL 5 MG TABLET (FOR DETOX USE ONLY) PO ONE (10:00)
[2018-08-30] MEDS ORDERED: METHADONE HCL 10 MG TABLET (FOR DETOX USE ONLY) PO ONE (10:00)
[2018-08-30 10:04] VITALS: BP 103/58; PULSE 62; TEMP 97.5
[2018-08-30] MEDS: cloNIDine HCL 0.1 MG TABLET PO PRN (10:08)
[2018-08-30] MEDS: PRENATAL VITAMINS W/ FOLIC ACID TABLET (FP) PO SCH (10:08)
--- NOTE | 2018-08-30 11:15 | DS ---
[facility] Detox Discharge Summary Admission Date: 08/26/18 Discharge Date: 08/30/18 - History Present History: Opioid Dependence - Physical Exam Results Vital Signs: Vital Signs Temperature 97.5 F L 08/30/18 10:03 Pulse Rate 62 08/30/18 10:03 Respiratory Rate 18 08/30/18 10:03 Blood Pressure 103/58 L 08/30/18 10:03 O2 Sat by Pulse Oximetry (%) Pertinent Admission Physical Exam Findings: PATIENT TOLERATED DETOX WITHOUT ADVERSE EVENT. PATIENT ACCEPTED REFERRAL TO REHAB AT [facility]. PATIENT ENCOURAGED TO COMPLETE REHAB TO PREVENT RELAPSE. D /C INSTRUCTIONS PROVIDED TO PATIENT BY STAFF. - Treatment Hospital Course: Detox Protocol Followed, Detoxed Safely, Responded well, Discharged Condition Good, Rehab Referral Accepted Patient has Accepted a Rehab Referral to: [facility] - Medication Discharge Medications: Ambulatory Orders NK [No Known Home Medication] 08/26/18 - Diagnosis (1) Opioid dependence with withdrawal Current Visit: Yes Status: Resolved - AMA Did Patient Leave Against Medical Advice: No
[2018-08-31] MEDS ORDERED: METHADONE HCL 5 MG TABLET (FOR DETOX USE ONLY) PO ONE (06:00)
== END 2018-08-30 14:20 | disposition other institution (70) | DRG 773 ==
LOC: YASAS 13:44 → Y3N 15:52
PROC: HZ2ZZZZ Detoxification Services for Substance Abuse Treatment (ICD-10-PCS; principal; 2018-08-26)
DX: F11.23 Opioid dependence with withdrawal (principal); F12.20 Cannabis dependence, uncomplicated; F17.213 Nicotine dependence, cigarettes, with withdrawal; R79.89 Other specified abnormal findings of blood chemistry; Z86.69 Personal history of other diseases of the nervous system and sense organs
CPT/HCPCS: 36415; 80053; 81003; 85027; 86593; J0735

== ENCOUNTER 2018-08-30 14:49 | Inpatient (IN) | payer OTHER ==
[2018-08-30] MEDS ORDERED: LOPERAMIDE HCL 2 MG CAPSULE PO PRN (15:53)
[2018-08-30] MEDS ORDERED: ACETAMINOPHEN 325 MG TABLET (FP) PO PRN (15:53)
[2018-08-30] MEDS ORDERED: guaiFENesin/D-METHORPHAN HB 10 ML UNIT-DOSE CUPS PO PRN (15:53)
[2018-08-30] MEDS ORDERED: MAGNESIUM HYDROX 2400MG/30ML ORAL SUSPENSION 30 ML CUP PO PRN (15:53)
[2018-08-30] MEDS ORDERED: MAGNESIUM CITRATE 300 ML BOTTLE PO PRN (15:53)
[2018-08-30] MEDS ORDERED: hydrOXYzine PAMOATE 50 MG CAPSULE (FP) PO PRN (15:53)
[2018-08-30] MEDS ORDERED: MAG HYDROX/AL HYDROX/SIMETH 30 ML UNIT-DOSE CUP PO PRN (15:53)
[2018-08-30] MEDS ORDERED: MENTHOL/PHENOL 1 EACH UD MM PRN (15:53)
[2018-08-30] MEDS ORDERED: IBUPROFEN 400 MG TABLET (FP) PO PRN (15:53)
[2018-08-30] MEDS ORDERED: P-EPHED 60MG/TRIPROLIDI 2.5MG TABLET PO PRN (15:53)
--- NOTE | 2018-08-30 15:55 | HP ---
[facility] Rehab Assess/Revision - Admission History Admitted to Rehab [facility] - Findings Detox History & Physical reviewed: Yes Concur with findings: Yes Inpatient Rehab Admission - Initial Determination Are CD services needed?: Yes Free of communicable disease: Yes Not in need of hospitalization: Yes - Rehab Admission Criteria Previous failed treatment: Yes Poor recovery environment: Yes Comorbidities: Yes Lacks judgement: No Patient is meeting Inpatient Rehab admission criteria:: Yes
[2018-08-30] MEDS ORDERED: MELATONIN 5 MG TABLETS PO PRN (22:00)
[2018-08-30] MEDS: THIAMINE HCL 100 MG TABLET (FP) PO SCH (22:09)
[2018-08-31] MEDS: PRENATAL VITAMINS W/ FOLIC ACID TABLET (FP) PO SCH (11:19)
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
[2018-08-31] MEDS: QUEtiapine FUMARATE 100 MG TABLET (FP) PO SCH (22:13)
[2018-08-31] MEDS: THIAMINE HCL 100 MG TABLET (FP) PO SCH (22:13)
[2018-09-01] MEDS: PRENATAL VITAMINS W/ FOLIC ACID TABLET (FP) PO SCH (10:31)
[2018-09-01] MEDS: QUEtiapine FUMARATE 100 MG TABLET (FP) PO SCH (21:32)
[2018-09-01] MEDS: THIAMINE HCL 100 MG TABLET (FP) PO SCH (21:32)
[2018-09-02 07:07] VITALS: BP 116/71; PULSE 81; TEMP 97.4
[2018-09-02] MEDS ORDERED: IBUPROFEN 600 MG TABLET (FP) PO PRN (09:28)
--- NOTE | 2018-09-02 09:37 | PN ---
S Progress Note Note: PATIENT C/O DISCOMFORT TO LEFT GROIN AREA HERNIA. PATIENT STATES HE HAS HAD HERNIA X MONTHS AND WAS SEEN BY MD IN COMMUNITY. PATIENT TREATED CONSERVATIVELY HERNIA WOULD GO BACK INSIDE WITH PRESSURE/LAYING DOWN. PATIENT DENIES SEVERE PAIN, REDNESS OR INCREASE SWELLING TO HERNIA. STATES IT FEELS UNCOMFORTABLE SINCE YESTERDAY. Vital Signs Temperature 97.4 F L 09/02/18 07:06 Pulse Rate 81 09/02/18 07:06 Respiratory Rate 18 09/02/18 07:06 Blood Pressure 116/71 09/02/18 07:06 O2 Sat by Pulse Oximetry (%) PE: ALERT AND ORIENTED X 3 SKIN WARM AND DRY CAR S1S2 RESP CTA BL GI SOFT, FLAT, NT LEFT GROIN: +HERNIA APPROXIMATELY SIZE OF [place], NO SURROUNDING REDNESS OR WARMTH TO AREA NOTED EXT FULL ROM A/P: CHRONIC HERNIA WILL APPLY COOL COMPRESS TO LEFT GROIN HERNIA DAILY AND PRN FOR DISCOMFORT INCREASE MOTRIN TO 600MG PRN APPLY PRESSURE TOLERATED CONTINUE TO MONITOR CLINICALLY
[2018-09-02] MEDS: PRENATAL VITAMINS W/ FOLIC ACID TABLET (FP) PO SCH (11:13)
--- NOTE | 2018-09-02 13:38 | PN ---
S Progress Note Note: NOTIFIED BY RN THAT PATIENT REQUESTED TO SIGN OUT AMA. PATIENT ENCOURAGED TO COMPLETE REHAB BUT REFUSED STATING HE WANTS TO SEE HIS OWN PCP REGARDING HERNIA. PATIENT EDUCATED REGARDING RISK FACTORS AND RELAPSE WITH SIGNING OUT AMA. PATIENT ENCOURAGED TO ATTEND GROUP MEETINGS IN COMMUNITY AND TO SEEK MEDICAL ATTENTION IF WITHDRAWAL SX OCCUR.
--- NOTE | 2018-09-02 13:39 | DS ---
[facility] Detox Discharge Summary Admission Date: 08/30/18 Discharge Date: 09/02/18 - History Present History: Opioid Dependence - Physical Exam Results Vital Signs: Vital Signs Temperature 97.4 F L 09/02/18 07:06 Pulse Rate 81 09/02/18 07:06 Respiratory Rate 18 09/02/18 07:06 Blood Pressure 116/71 09/02/18 07:06 O2 Sat by Pulse Oximetry (%) - Medication Discharge Medications: Ambulatory Orders NK [No Known Home Medication] 08/26/18 - Diagnosis (1) Left inguinal hernia Status: Chronic - AMA Did Patient Leave Against Medical Advice: Yes
== END 2018-09-02 12:40 | disposition left against medical advice (07) | DRG 770 ==
LOC: YASAS 14:49 → Y3W 14:50
PROVIDERS: ADMIT Psychiatry & Neurology Psychiatry; ATTEND Psychiatry & Neurology Psychiatry
PROC: HZ42ZZZ Group Counseling for Substance Abuse Treatment, Cognitive-Behavioral (ICD-10-PCS; principal; 2018-08-30)
DX: F11.20 Opioid dependence, uncomplicated (principal); F12.20 Cannabis dependence, uncomplicated; F17.213 Nicotine dependence, cigarettes, with withdrawal; G47.00 Insomnia, unspecified; K40.90 Unilateral inguinal hernia, without obstruction or gangrene, not specified as recurrent

== ENCOUNTER 2018-12-31 11:28 | Inpatient (IN) | payer OTHER ==
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
[2018-12-31] MEDS ORDERED: MAGNESIUM CITRATE 300 ML BOTTLE PO PRN (13:33)
[2018-12-31] MEDS ORDERED: ACETAMINOPHEN 325 MG TABLET (FP) PO PRN ×2 (13:33)
[2018-12-31] MEDS ORDERED: BISMUTH SUBSALICYLATE 524 MG/30 ML UD PO PRN (13:33)
[2018-12-31] MEDS ORDERED: MAG HYDROX/AL HYDROX/SIMETH 30 ML UNIT-DOSE CUP PO PRN (13:33)
[2018-12-31] MEDS ORDERED: cloNIDine HCL 0.1 MG TABLET PO PRN (13:33)
[2018-12-31] MEDS ORDERED: MAGNESIUM HYDROX 2400MG/30ML ORAL SUSPENSION 30 ML CUP PO PRN (13:33)
[2018-12-31] MEDS ORDERED: hydrOXYzine PAMOATE 25 MG CAPSULE (FP) PO PRN (13:33)
[2018-12-31] MEDS ORDERED: METHOCARBAMOL 500 MG TABLET PO PRN (13:33)
[2018-12-31] MEDS ORDERED: MENTHOL/PHENOL 1 EACH UD MM PRN (13:33)
[2018-12-31] MEDS ORDERED: IBUPROFEN 400 MG TABLET (FP) PO PRN (13:33)
[2018-12-31] MEDS ORDERED: METHADONE HCL 10 MG TABLET (FOR DETOX USE ONLY) PO ONE ×2 (13:40→23:00)
[2018-12-31 17:03] LABS: HEMATOCRIT 34.2 % (35.4-49); HEMOGLOBIN 11.4 GM/dL (11.7-16.9); MCH 28.1 pg (25.7-33.7); MCHC 33.5 g/dl (32.0-35.9); MEAN CELL VOLUME 83.8 fl (80-96); MEAN PLT VOLUME 9.2 fl (7.5-11.1); PLATELET COUNT 211 K/MM3 (134-434); RBC 4.08 M/mm3 (4.00-5.60); RDW 15.6 % (11.9-15.9); WHITE BLOOD COUNT 5.5 K/mm3 (4.0-10.0)
[2018-12-31 17:45] LABS: ALBUMIN 3.4 g/dl (3.4-5.0); ALK PHOS 90 U/L (45-117); ANION GAP 5 MMOL/L (8-16); BILIRUBIN,TOTAL 0.6 mg/dL (0.2-1); BLOOD UREA NITROGEN 13 mg/dL (7-18); CALCIUM 8.2 mg/dL (8.5-10.1); CHLORIDE 100 mmol/L (98-107); CO2 31 mmol/L (21-32); CREATININE 1.1 mg/dL (0.55-1.3); GLUCOSE,RANDOM 84 mg/dL (74-106); POTASSIUM 3.4 mmol/L (3.5-5.1); SGOT/AST 18 U/L (15-37); SGPT/ALT 16 U/L (13-61); SODIUM 136 mmol/L (136-145); TOT PROT 6.5 g/dl (6.4-8.2)
[2018-12-31 19:49] LABS: URINE APPEARANCE CLEAR; URINE BILIRUBIN NEGATIVE (NEGATIVE); URINE COLOR YELLOW; URINE GLUCOSE (UA) NEGATIVE (NEGATIVE); URINE KETONE NEGATIVE (NEGATIVE); URINE LEUK ESTERASE NEGATIVE (NEGATIVE); URINE NITRITE NEGATIVE (NEGATIVE); URINE PROTEIN NEGATIVE (NEGATIVE); URINE UROBILINOGEN 0.2 mg/dL (0.2-1.0)
[2018-12-31] MEDS: THIAMINE HCL 100 MG TABLET (FP) PO SCH (22:17)
[2018-12-31] MEDS: MELATONIN 5 MG TABLETS PO PRN (22:18)
--- NOTE | 2019-01-01 09:37 | PN ---
[facility] COWS - Scale Resting Pulse: 0= [place] 80 or Below Sweatin=Flushed/Facial Moisture Restless Observation: 1= Difficult to Sit Still Pupil Size: 0= Normal to Room Light Bone or Joint Aches: 2= Severe Diffuse Aches Runny Nose/ Eye Tearin= Nasal Congestion GI Upset > 30mins: 2= Nausea/Diarrhea Tremor Observation of Outstretched Hands: 2= Slight Tremor Visible Yawning Observation: 2= >3x During Session Anxiety or Irritability: 2=Irritable/Anxious Goose Flesh Skin: 0=Smooth Skin COWS Score: 14 [facility]HS Progress Note (SOAP) Subjective: shakes sweats irritable agitation body aches Objective: 01/01/19 09:35 Vital Signs Temperature 97.9 F 01/01/19 09:12 Pulse Rate 67 01/01/19 09:12 Respiratory Rate 18 01/01/19 09:12 Blood Pressure 100/53 L 01/01/19 09:12 O2 Sat by Pulse Oximetry (%) Laboratory Tests 12/31/18 12/31/18 12/31/18 13:40 13:40 16:40 WBC 5.5 RBC 4.08 Hgb 11.4 L Hct 34.2 L MCV 83.8 MCH 28.1 MCHC 33.5 RDW 15.6 D Plt Count 211 MPV 9.2 Sodium 136 Potassium 3.4 L Chloride 100 Carbon Dioxide 31 Anion Gap 5 L BUN 13 Creatinine 1.1 Creat Clearance w eGFR 75.32 Random Glucose 84 Calcium 8.2 L Total Bilirubin 0.6 AST 18 ALT 16 Alkaline Phosphatase 90 Total Protein 6.5 Albumin 3.4 Urine Color Yellow Urine Appearance Clear Urine pH 5.0 Ur Specific [place] 1.016 Urine Protein Negative Urine Glucose (UA) Negative Urine Ketones Negative Urine Blood Negative Urine Nitrite Negative Urine Bilirubin Negative Urine Urobilinogen 0.2 Ur Leukocyte Esterase Negative hypokalemia 3.4 aaox3 ambulating no acute distress Assessment: 01/01/19 09:36 withdrawal sx Plan: continue detox increase fluids kdur 20meq x 4 days
[2019-01-01] MEDS ORDERED: METHADONE HCL 10 MG TABLET (FOR DETOX USE ONLY) PO ONE (10:00)
[2019-01-01] MEDS: POTASSIUM CHLORIDE TABS 20 MEQ TABLET.ER (FP) PO SCH (10:16)
[2019-01-01] MEDS: PRENATAL VITAMINS W/ FOLIC ACID TABLET (FP) PO SCH (10:17)
[2019-01-01] MEDS: THIAMINE HCL 100 MG TABLET (FP) PO SCH (22:02)
[2019-01-01] MEDS: MELATONIN 5 MG TABLETS PO PRN (22:03)
[2019-01-01] MEDS: diazePAM 5 MG TABLET PO PRN (22:04)
[2019-01-02] MEDS ORDERED: METHADONE HCL 10 MG TABLET (FOR DETOX USE ONLY) PO ONE (10:00)
--- NOTE | 2019-01-02 10:25 | PN ---
S CIWA - CIWA Score Nausea/Vomitin Muscle Tremors: 2 Anxiety: 2 Agitation: 2 Paroxysmal Sweats: 1-Minimal Palms Moist Orientation: 0-Oriented Tacttile Disturbances: 1-Very Mild Itch/Numbness Auditory Disturbances: 1-Very Mild Visual Disturbances: 0-None Headache: 2-Mild CIWA-Ar Total Score: 13 [facility] COWS - Scale Resting Pulse: 0= [place] 80 or Below Sweatin= Chills/Flushing Restless Observation: 1= Difficult to Sit Still Pupil Size: 1= Pupils >than Normal Bone or Joint Aches: 2= Severe Diffuse Aches Runny Nose/ Eye Tearin= Runny Nose/Eyes GI Upset > 30mins: 2= Nausea/Diarrhea Tremor Observation of Outstretched Hands: 2= Slight Tremor Visible Yawning Observation: 1= 1-2x During Session Anxiety or Irritability: 2=Irritable/Anxious Goose Flesh Skin: 0=Smooth Skin COWS Score: 14 BHS Progress Note (SOAP) Subjective: alert,irritable,anxious,interrupted sleep,tremor,pain in the body and back Objective: 01/02/19 10:23 Vital Signs Temperature 98.1 F 01/02/19 10:11 Pulse Rate 61 01/02/19 10:11 Respiratory Rate 16 01/02/19 10:11 Blood Pressure 130/80 01/02/19 10:11 O2 Sat by Pulse Oximetry (%) Laboratory Last Values WBC 5.5 K/mm3 (4.0-10.0) 12/31/18 13:40 RBC 4.08 M/mm3 (4.00-5.60) 12/31/18 13:40 Hgb 11.4 GM/dL (11.7-16.9) L 12/31/18 13:40 Hct 34.2 % (35.4-49) L 12/31/18 13:40 MCV 83.8 fl (80-96) 12/31/18 13:40 MCH 28.1 pg (25.7-33.7) 12/31/18 13:40 MCHC 33.5 g/dl (32.0-35.9) 12/31/18 13:40 RDW 15.6 % (11.9-15.9) D 12/31/18 13:40 Plt Count 211 K/MM3 (134-434) 12/31/18 13:40 MPV 9.2 fl (7.5-11.1) 12/31/18 13:40 Sodium 136 mmol/L (136-145) 12/31/18 13:40 Potassium 3.4 mmol/L (3.5-5.1) L 12/31/18 13:40 Chloride 100 mmol/L (98-107) 12/31/18 13:40 Carbon Dioxide 31 mmol/L (21-32) 12/31/18 13:40 Anion Gap 5 MMOL/L (8-16) L 12/31/18 13:40 BUN 13 mg/dL (7-18) 12/31/18 13:40 Creatinine 1.1 mg/dL (0.55-1.3) 12/31/18 13:40 Creat Clearance w eGFR 75.32 (>60) 12/31/18 13:40 Random Glucose 84 mg/dL (74-106) 12/31/18 13:40 Calcium 8.2 mg/dL (8.5-10.1) L 12/31/18 13:40 Total Bilirubin 0.6 mg/dL (0.2-1) 12/31/18 13:40 AST 18 U/L (15-37) 12/31/18 13:40 ALT 16 U/L (13-61) 12/31/18 13:40 Alkaline Phosphatase 90 U/L (45-117) 12/31/18 13:40 Total Protein 6.5 g/dl (6.4-8.2) 12/31/18 13:40 Albumin 3.4 g/dl (3.4-5.0) 12/31/18 13:40 Urine Color Yellow 12/31/18 16:40 Urine Appearance Clear 12/31/18 16:40 Urine pH 5.0 (5.0-8.0) 12/31/18 16:40 Ur Specific [place] 1.016 (1.010-1.035) 12/31/18 16:40 Urine Protein Negative (NEGATIVE) 12/31/18 16:40 Urine Glucose (UA) Negative (NEGATIVE) 12/31/18 16:40 Urine Ketones Negative (NEGATIVE) 12/31/18 16:40 Urine Blood Negative (NEGATIVE) 12/31/18 16:40 Urine Nitrite Negative (NEGATIVE) 12/31/18 16:40 Urine Bilirubin Negative (NEGATIVE) 12/31/18 16:40 Urine Urobilinogen 0.2 mg/dL (0.2-1.0) 12/31/18 16:40 Ur Leukocyte Esterase Negative (NEGATIVE) 12/31/18 16:40 RPR Titer Nonreactive (NONREACTIVE) 12/31/18 13:40 Assessment: 01/02/19 10:24 withdrawal symptom Plan: continue detox
[2019-01-02] MEDS: PRENATAL VITAMINS W/ FOLIC ACID TABLET (FP) PO SCH (10:29)
[2019-01-02] MEDS: POTASSIUM CHLORIDE TABS 20 MEQ TABLET.ER (FP) PO SCH (10:29)
[2019-01-02] MEDS: THIAMINE HCL 100 MG TABLET (FP) PO SCH (22:39)
[2019-01-02] MEDS: diazePAM 5 MG TABLET PO PRN (22:39)
[2019-01-02] MEDS: MELATONIN 5 MG TABLETS PO PRN (22:40)
[2019-01-03] MEDS ORDERED: METHADONE HCL 10 MG TABLET (FOR DETOX USE ONLY) PO ONE (10:00)
[2019-01-03] MEDS: PRENATAL VITAMINS W/ FOLIC ACID TABLET (FP) PO SCH (10:30)
--- NOTE | 2019-01-03 10:41 | PN ---
BHS Progress Note (SOAP) Subjective: alert,irritable,anxious,interrupted sleep,pain in the body Objective: 01/03/19 10:40 Vital Signs Temperature 97.3 F L 01/03/19 09:34 Pulse Rate 67 01/03/19 09:34 Respiratory Rate 18 01/03/19 09:34 Blood Pressure 133/81 01/03/19 09:34 O2 Sat by Pulse Oximetry (%) Assessment: 01/03/19 10:41 withdrawal symptom Plan: continue detox,discharge in am
[2019-01-03] MEDS: THIAMINE HCL 100 MG TABLET (FP) PO SCH (22:29)
[2019-01-03] MEDS: MELATONIN 5 MG TABLETS PO PRN (22:29)
[2019-01-04] MEDS ORDERED: METHADONE HCL 5 MG TABLET (FOR DETOX USE ONLY) PO ONE (06:00)
[2019-01-04 06:19] VITALS: BP 131/75; PULSE 59; TEMP 97.3
--- NOTE | 2019-01-04 14:45 | DS ---
[facility] Detox Discharge Summary Admission Date: 12/31/18 Discharge Date: 01/04/19 - History Additional Comments: pt was discharged and had left the unit prior to this provider arriving the unit. Per Counselor, pt went home and was going to do aftercare by attending outpatient rehab. Per TRAILHEAD CONSTRUCTION WORKER and RNs, pt was not in any acute distress prior to leaving unit - Physical Exam Results Vital Signs: Vital Signs Temperature 97.3 F L 01/04/19 06:00 Pulse Rate 59 L 01/04/19 06:00 Respiratory Rate 16 01/04/19 06:00 Blood Pressure 131/75 01/04/19 06:00 O2 Sat by Pulse Oximetry (%) - Treatment Hospital Course: Detox Protocol Followed, Detoxed Safely, Responded well, Discharged Condition Good - Medication Discharge Medications: Ambulatory Orders NK [No Known Home Medication] 08/26/18 - AMA Did Patient Leave Against Medical Advice: No
== END 2019-01-04 09:03 | disposition home or self-care (01) | DRG 773 ==
LOC: YASAS 11:28 → Y6N 13:50
PROVIDERS: ADMIT Surgery; ATTEND Surgery
PROC: HZ2ZZZZ Detoxification Services for Substance Abuse Treatment (ICD-10-PCS; principal; 2018-12-31)
DX: F11.23 Opioid dependence with withdrawal (principal); F14.20 Cocaine dependence, uncomplicated; F12.20 Cannabis dependence, uncomplicated; F17.210 Nicotine dependence, cigarettes, uncomplicated; G47.00 Insomnia, unspecified; R63.4 Abnormal weight loss; Z68.20 Body mass index [BMI] 20.0-20.9, adult; Z87.09 Personal history of other diseases of the respiratory system; Z86.69 Personal history of other diseases of the nervous system and sense organs; Z87.820 Personal history of traumatic brain injury
CPT/HCPCS: 36415; 80053; 81003; 85027; 86593

== ENCOUNTER 2019-01-15 08:07 | Inpatient (IN) | payer OTHER ==
[2019-01-15 08:32] VITALS: BMI 21.4
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
[2019-01-15] MEDS ORDERED: hydrOXYzine PAMOATE 50 MG CAPSULE (FP) PO PRN (11:38)
[2019-01-15] MEDS ORDERED: MAGNESIUM CITRATE 300 ML BOTTLE PO PRN (11:38)
[2019-01-15] MEDS ORDERED: IBUPROFEN 400 MG TABLET (FP) PO PRN (11:38)
[2019-01-15] MEDS ORDERED: MENTHOL/PHENOL 1 EACH UD MM PRN (11:38)
[2019-01-15] MEDS ORDERED: LOPERAMIDE HCL 2 MG CAPSULE PO PRN (11:38)
[2019-01-15] MEDS ORDERED: guaiFENesin 200 MG/10 ML 10 ML UNIT-DOSE CUPS PO PRN (11:38)
[2019-01-15] MEDS ORDERED: P-EPHED 60MG/TRIPROLIDI 2.5MG TABLET PO PRN (11:38)
[2019-01-15] MEDS ORDERED: ACETAMINOPHEN 325 MG TABLET (FP) PO PRN (11:38)
[2019-01-15] MEDS ORDERED: MAGNESIUM HYDROX 2400MG/30ML ORAL SUSPENSION 30 ML CUP PO PRN (11:38)
[2019-01-15] MEDS ORDERED: MAG HYDROX/AL HYDROX/SIMETH 30 ML UNIT-DOSE CUP PO PRN (11:38)
[2019-01-15] MEDS ORDERED: METHOCARBAMOL 500 MG TABLET PO PRN (11:40)
[2019-01-15] MEDS: cloNIDine HCL 0.1 MG TABLET PO SCH ×2 (12:25→21:56)
[2019-01-15] MEDS ORDERED: THIAMINE HCL 100 MG TABLET (FP) PO SCH (22:00)
[2019-01-15] MEDS ORDERED: MELATONIN 5 MG TABLETS PO PRN (22:00)
[2019-01-16 06:47] VITALS: TEMP 97.8
[2019-01-16] MEDS ORDERED: PRENATAL VITAMINS W/ FOLIC ACID TABLET (FP) PO SCH (10:00)
[2019-01-16] MEDS: cloNIDine HCL 0.1 MG TABLET PO SCH (10:36)
[2019-01-16 11:25] VITALS: BP 131/80; PULSE 58
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
[2019-01-16] MEDS ORDERED: ALBUTEROL SO4 2.5/IPRATROPIUM 0.5 INH SOL 3 ML VIAL.NEB. NEB PRN (13:19)
--- NOTE | 2019-01-16 15:09 | PN ---
[facility] Progress Note Note: PT MET WITH HIS COUNSELOR TODAY AND REPORTS PSYCH HX AND PREVIOUS THERAPY. WAS ON SEROQUEL AND REQUESTED FOR PSYCH FOLLOW UP.
--- NOTE | 2019-01-16 17:28 | PN ---
[facility] Progress Note Note: Patient leaving AMA. Patient declines to specify reason for wanting to leave. Admitted w/heroin withdrawal symptoms and co-occurring nicotine, cocaine, and marijuana use disorder. Patient agreed to have a prescription for Narcan. Vital Signs - 24 hr 01/15/19 01/16/19 01/16/19 20:49 00:30 03:30 Temperature Pulse Rate 64 Respiratory 18 18 Rate Blood Pressure 114/70 01/16/19 01/16/19 06:46 10:00 Temperature 97.8 F Pulse Rate 54 L 58 L Respiratory 18 Rate Blood Pressure 124/75 131/80 Patient left unit alert w/ steady gait. Patient discharged AMA.
== END 2019-01-16 17:43 | disposition left against medical advice (07) | DRG 770 ==
LOC: YASAS 08:07 → Y5N 11:45
PROVIDERS: ADMIT Neuromusculoskeletal Medicine & OMM; ATTEND Neuromusculoskeletal Medicine & OMM
PROC: HZ42ZZZ Group Counseling for Substance Abuse Treatment, Cognitive-Behavioral (ICD-10-PCS; principal; 2019-01-15)
DX: F11.20 Opioid dependence, uncomplicated (principal); F14.20 Cocaine dependence, uncomplicated; F12.20 Cannabis dependence, uncomplicated; F17.210 Nicotine dependence, cigarettes, uncomplicated; K40.91 Unilateral inguinal hernia, without obstruction or gangrene, recurrent; J45.909 Unspecified asthma, uncomplicated; G47.00 Insomnia, unspecified; R63.4 Abnormal weight loss; Z86.69 Personal history of other diseases of the nervous system and sense organs
CPT/HCPCS: J0735

== ENCOUNTER 2019-04-03 09:38 | Inpatient (IN) | payer OTHER ==
[2019-04-03 10:57] VITALS: BMI 19.6
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
[2019-04-03] MEDS ORDERED: METHADONE HCL 10 MG TABLET (FOR DETOX USE ONLY) PO ONE (13:22)
[2019-04-03] MEDS ORDERED: BISMUTH SUBSALICYLATE 524 MG/30 ML UD PO PRN (13:23)
[2019-04-03] MEDS ORDERED: IBUPROFEN 400 MG TABLET (FP) PO PRN (13:23)
[2019-04-03] MEDS ORDERED: hydrOXYzine PAMOATE 25 MG CAPSULE (FP) PO PRN (13:23)
[2019-04-03] MEDS ORDERED: MAGNESIUM HYDROX 2400MG/30ML ORAL SUSPENSION 30 ML CUP PO PRN (13:23)
[2019-04-03] MEDS ORDERED: MENTHOL/PHENOL 1 EACH UD MM PRN (13:23)
[2019-04-03] MEDS ORDERED: MELATONIN 5 MG TABLETS PO PRN (13:23)
[2019-04-03] MEDS ORDERED: ACETAMINOPHEN 325 MG TABLET (FP) PO PRN (13:23)
[2019-04-03] MEDS ORDERED: ALBUTEROL SO4 0.083% IH SOL 2.5 MG/3 ML VIAL.NEB. NEB PRN (13:29)
--- NOTE | 2019-04-03 13:46 | PN ---
[facility] Progress Note Note: pt seen , here for opiate detox reports -8 bags ivdu , relapse after prior detox , latest use this morning , current symptoms as above, anticipating worsening symptoms as the day progresses , injects in cale UE , needles from pharmacy , denies sharing, denies re-using, denies OD , denies abscess . cocaine : " not my drug of choice " , reports intermittent use cannabis - daily PMH: asthma, seizures as above. last episode 2 yrs ago, was on keppra stopped taking PE ; Cale UE track carrillo , most recent anterior forearms mild edema and erythema, no tenderness a/p : opiate dependence - Methadone taper cocaine abuse Cannabis dependence Nicotine dependence d/w pt agreeable w/ POC .
[2019-04-03] MEDS: PANTOPRAZOLE 20 MG TABLET (FP) PO SCH (15:02)
[2019-04-03] MEDS: THIAMINE HCL 100 MG TABLET (FP) PO SCH (22:28)
[2019-04-04] MEDS ORDERED: METHADONE HCL 5 MG TABLET (FOR DETOX USE ONLY) PO ONE (10:00)
[2019-04-04 10:25] LABS: HEMATOCRIT 37.4 % (35.4-49); HEMOGLOBIN 12.1 GM/dL (11.7-16.9); MCH 26.5 pg (25.7-33.7); MCHC 32.3 g/dl (32.0-35.9); MEAN CELL VOLUME 81.9 fl (80-96); MEAN PLT VOLUME 9.5 fl (7.5-11.1); PLATELET COUNT 240 K/MM3 (134-434); RBC 4.57 M/mm3 (4.00-5.60); RDW 17.3 % (11.9-15.9); WHITE BLOOD COUNT 5.9 K/mm3 (4.0-10.0)
[2019-04-04] MEDS: PRENATAL VITAMINS W/ FOLIC ACID TABLET (FP) PO SCH (10:31)
[2019-04-04] MEDS: PANTOPRAZOLE 20 MG TABLET (FP) PO SCH (10:31)
[2019-04-04 10:46] LABS: ALBUMIN 3.1 g/dl (3.4-5.0); BILIRUBIN,TOTAL 0.5 mg/dL (0.2-1); BLOOD UREA NITROGEN 11.1 mg/dL (7-18); CALCIUM 8.7 mg/dL (8.5-10.1); POTASSIUM 3.6 mmol/L (3.5-5.1); TOT PROT 6.7 g/dl (6.4-8.2)
[2019-04-04] MEDS ORDERED: METHOCARBAMOL 500 MG TABLET PO PRN (11:05)
--- NOTE | 2019-04-04 13:59 | PN ---
[facility] COWS - Scale Resting Pulse: 0= [place] 80 or Below Sweatin= Chills/Flushing Restless Observation: 1= Difficult to Sit Still Pupil Size: 1= Pupils >than Normal Bone or Joint Aches: 2= Severe Diffuse Aches Runny Nose/ Eye Tearin= Runny Nose/Eyes GI Upset > 30mins: 2= Nausea/Diarrhea Tremor Observation of Outstretched Hands: 2= Slight Tremor Visible Yawning Observation: 1= 1-2x During Session Anxiety or Irritability: 2=Irritable/Anxious Goose Flesh Skin: 0=Smooth Skin COWS Score: 14 S Progress Note (SOAP) Subjective: alert,irritable,anxious,interrupted sleep,pain in the body and back Objective: 04/04/19 13:58 Vital Signs Temperature 98.3 F 04/04/19 13:48 Pulse Rate 61 04/04/19 13:48 Respiratory Rate 18 04/04/19 13:48 Blood Pressure 138/90 04/04/19 13:48 O2 Sat by Pulse Oximetry (%) Laboratory Last Values WBC 5.9 K/mm3 (4.0-10.0) 04/04/19 07:50 RBC 4.57 M/mm3 (4.00-5.60) 04/04/19 07:50 Hgb 12.1 GM/dL (11.7-16.9) 04/04/19 07:50 Hct 37.4 % (35.4-49) 04/04/19 07:50 MCV 81.9 fl (80-96) 04/04/19 07:50 MCH 26.5 pg (25.7-33.7) 04/04/19 07:50 MCHC 32.3 g/dl (32.0-35.9) 04/04/19 07:50 RDW 17.3 % (11.9-15.9) H 04/04/19 07:50 Plt Count 240 K/MM3 (134-434) 04/04/19 07:50 MPV 9.5 fl (7.5-11.1) 04/04/19 07:50 Sodium 141 mmol/L (136-145) 04/04/19 07:50 Potassium 3.6 mmol/L (3.5-5.1) 04/04/19 07:50 Chloride 104 mmol/L (98-107) 04/04/19 07:50 Carbon Dioxide 30 mmol/L (21-32) 04/04/19 07:50 Anion Gap 7 MMOL/L (8-16) L 04/04/19 07:50 BUN 11.1 mg/dL (7-18) 04/04/19 07:50 Creatinine 1.0 mg/dL (0.55-1.3) 04/04/19 07:50 Est GFR (CKD-EPI)AfAm 110.94 04/04/19 07:50 Est GFR (CKD-EPI)NonAf 95.72 04/04/19 07:50 Random Glucose 82 mg/dL (74-106) 04/04/19 07:50 Calcium 8.7 mg/dL (8.5-10.1) 04/04/19 07:50 Total Bilirubin 0.5 mg/dL (0.2-1) 04/04/19 07:50 AST 18 U/L (15-37) 04/04/19 07:50 ALT 29 U/L (13-61) 04/04/19 07:50 Alkaline Phosphatase 98 U/L (45-117) 04/04/19 07:50 Total Protein 6.7 g/dl (6.4-8.2) 04/04/19 07:50 Albumin 3.1 g/dl (3.4-5.0) L 04/04/19 07:50 RPR Titer Nonreactive (NONREACTIVE) 04/04/19 07:50 HIV 1&2 Antibody Screen Negative 04/04/19 07:50 HIV P24 Antigen Negative 04/04/19 07:50 Assessment: 04/04/19 13:59 withdrawal symptom Plan: continue detox
[2019-04-04] MEDS: THIAMINE HCL 100 MG TABLET (FP) PO SCH (23:28)
[2019-04-05] MEDS ORDERED: METHADONE HCL 10 MG TABLET (FOR DETOX USE ONLY) PO ONE (10:00)
[2019-04-05] MEDS: PANTOPRAZOLE 20 MG TABLET (FP) PO SCH (10:47)
[2019-04-05] MEDS: PRENATAL VITAMINS W/ FOLIC ACID TABLET (FP) PO SCH (11:17)
--- NOTE | 2019-04-05 13:26 | PN ---
[facility] COWS - Scale Resting Pulse: 0= [place] 80 or Below Sweatin= Chills/Flushing Restless Observation: 1= Difficult to Sit Still Pupil Size: 0= Normal to Room Light Bone or Joint Aches: 2= Severe Diffuse Aches Runny Nose/ Eye Tearin= None GI Upset > 30mins: 0= None Tremor Observation of Outstretched Hands: 0= None Yawning Observation: 1= 1-2x During Session Anxiety or Irritability: 2=Irritable/Anxious Goose Flesh Skin: 0=Smooth Skin COWS Score: 7 [facility] Progress Note (SOAP) Subjective: Body Aches, Anxious. Objective: PATIENT A & O X 3, OBSERVED AMBULATING ON UNIT UNASSISTED. IN NO ACUTE DISTRESS. 04/05/19 13:25 Vital Signs Temperature 98.7 F 04/05/19 09:38 Pulse Rate 55 L 04/05/19 09:38 Respiratory Rate 18 04/05/19 09:38 Blood Pressure 121/67 04/05/19 09:38 O2 Sat by Pulse Oximetry (%) Laboratory Tests 04/04/19 04/04/19 04/04/19 07:50 07:50 07:50 WBC 5.9 RBC 4.57 Hgb 12.1 Hct 37.4 MCV 81.9 MCH 26.5 MCHC 32.3 RDW 17.3 H Plt Count 240 MPV 9.5 Sodium 141 Potassium 3.6 Chloride 104 Carbon Dioxide 30 Anion Gap 7 L BUN 11.1 Creatinine 1.0 Est GFR (CKD-EPI)AfAm 110.94 Est GFR (CKD-EPI)NonAf 95.72 Random Glucose 82 Calcium 8.7 Total Bilirubin 0.5 AST 18 ALT 29 Alkaline Phosphatase 98 Total Protein 6.7 Albumin 3.1 L RPR Titer Nonreactive HIV 1&2 Antibody Screen HIV P24 Antigen 04/04/19 07:50 WBC RBC Hgb Hct MCV MCH MCHC RDW Plt Count MPV Sodium Potassium Chloride Carbon Dioxide Anion Gap BUN Creatinine Est GFR (CKD-EPI)AfAm Est GFR (CKD-EPI)NonAf Random Glucose Calcium Total Bilirubin AST ALT Alkaline Phosphatase Total Protein Albumin RPR Titer HIV 1&2 Antibody Screen Negative HIV P24 Antigen Negative LABS NOTED. RESULT OF TB / QFT TEST PENDING. 04/05/19 13:26 Assessment: 04/05/19 13:25 WITHDRAWAL SYMPTOMS. Plan: CONTINUE DETOX. PATIENT SCHEDULED FOR D/C FROM DETOX UNIT TOMORROW.
[2019-04-05] MEDS: THIAMINE HCL 100 MG TABLET (FP) PO SCH (23:43)
[2019-04-06] MEDS ORDERED: METHADONE HCL 5 MG TABLET (FOR DETOX USE ONLY) PO ONE (06:00)
[2019-04-06 06:47] VITALS: TEMP 98
[2019-04-06 09:28] VITALS: BP 149/82; PULSE 52
[2019-04-06] MEDS: PRENATAL VITAMINS W/ FOLIC ACID TABLET (FP) PO SCH (10:07)
[2019-04-06] MEDS: PANTOPRAZOLE 20 MG TABLET (FP) PO SCH (10:08)
--- NOTE | 2019-04-06 10:35 | DS ---
[facility] Detox Discharge Summary Admission Date: 04/03/19 Discharge Date: 04/06/19 - History Present History: Opioid Dependence Additional Comments: 38 years old male admitted on 04/03/19 for opiate withdrawal stabilization completed opiate detox regimen [facility] Pertinent Past History: asthma - Physical Exam Results Vital Signs: Vital Signs Temperature 98 F 04/06/19 09:27 Pulse Rate 52 L 04/06/19 09:27 Respiratory Rate 18 04/06/19 09:27 Blood Pressure 149/82 04/06/19 09:27 O2 Sat by Pulse Oximetry (%) Pertinent Admission Physical Exam Findings: Vital Signs Temperature 98 F 04/06/19 09:27 Pulse Rate 52 L 04/06/19 09:27 Respiratory Rate 18 04/06/19 09:27 Blood Pressure 149/82 04/06/19 09:27 O2 Sat by Pulse Oximetry (%) Laboratory Last Values WBC 5.9 K/mm3 (4.0-10.0) 04/04/19 07:50 RBC 4.57 M/mm3 (4.00-5.60) 04/04/19 07:50 Hgb 12.1 GM/dL (11.7-16.9) 04/04/19 07:50 Hct 37.4 % (35.4-49) 04/04/19 07:50 MCV 81.9 fl (80-96) 04/04/19 07:50 MCH 26.5 pg (25.7-33.7) 04/04/19 07:50 MCHC 32.3 g/dl (32.0-35.9) 04/04/19 07:50 RDW 17.3 % (11.9-15.9) H 04/04/19 07:50 Plt Count 240 K/MM3 (134-434) 04/04/19 07:50 MPV 9.5 fl (7.5-11.1) 04/04/19 07:50 Sodium 141 mmol/L (136-145) 04/04/19 07:50 Potassium 3.6 mmol/L (3.5-5.1) 04/04/19 07:50 Chloride 104 mmol/L (98-107) 04/04/19 07:50 Carbon Dioxide 30 mmol/L (21-32) 04/04/19 07:50 Anion Gap 7 MMOL/L (8-16) L 04/04/19 07:50 BUN 11.1 mg/dL (7-18) 04/04/19 07:50 Creatinine 1.0 mg/dL (0.55-1.3) 04/04/19 07:50 Est GFR (CKD-EPI)AfAm 110.94 04/04/19 07:50 Est GFR (CKD-EPI)NonAf 95.72 04/04/19 07:50 Random Glucose 82 mg/dL (74-106) 04/04/19 07:50 Calcium 8.7 mg/dL (8.5-10.1) 04/04/19 07:50 Total Bilirubin 0.5 mg/dL (0.2-1) 04/04/19 07:50 AST 18 U/L (15-37) 04/04/19 07:50 ALT 29 U/L (13-61) 04/04/19 07:50 Alkaline Phosphatase 98 U/L (45-117) 04/04/19 07:50 Total Protein 6.7 g/dl (6.4-8.2) 04/04/19 07:50 Albumin 3.1 g/dl (3.4-5.0) L 04/04/19 07:50 RPR Titer Nonreactive (NONREACTIVE) 04/04/19 07:50 HIV 1&2 Antibody Screen Negative 04/04/19 07:50 HIV P24 Antigen Negative 04/04/19 07:50 TB (QFT) Incubation (.) 04/03/19 06:00 TB Test (QFT) Nil 0.04 IU/mL (.) 04/03/19 06:00 TB Test (QFT) Mitogen 0.36 IU/mL (.) 04/03/19 06:00 TB Test (QFT) Antigen 0.04 IU/mL (.) 04/03/19 06:00 TB Test (QFT) Indeterminate (Negative) H 04/03/19 06:00 TB Positive Criteria (.) 04/03/19 06:00 lab noted - Treatment Hospital Course: Detox Protocol Followed, Detoxed Safely, Responded well, Discharged Condition Good, Rehab Referral Accepted Patient has Accepted a [facility] Referral [facility]: [facility] - Medication Discharge Medications: Ambulatory Orders NK [No Known Home Medication] 04/03/19 - Diagnosis (1) Opioid dependence with withdrawal Current Visit: Yes Status: Acute (2) Asthma Current Visit: Yes Status: Chronic Qualifiers: Asthma severity: mild Asthma persistence: intermittent Asthma complication type: uncomplicated Qualified Code(s): J45.20 - Mild intermittent asthma, uncomplicated (3) Substance induced mood disorder Current Visit: Yes Status: Suspected (4) Nicotine dependence Current Visit: Yes Status: Acute Qualifiers: Nicotine product type: cigarettes Substance use status: in withdrawal Qualified Code(s): F17.213 - Nicotine dependence, cigarettes, with withdrawal - AMA Did Patient Leave Against Medical Advice: No
== END 2019-04-06 13:17 | disposition home or self-care (01) | DRG 773 ==
LOC: YASAS 09:38 → Y3N 13:34
PROVIDERS: ADMIT Surgery; ATTEND Surgery
PROC: HZ2ZZZZ Detoxification Services for Substance Abuse Treatment (ICD-10-PCS; principal; 2019-04-03)
DX: F11.23 Opioid dependence with withdrawal (principal); F14.20 Cocaine dependence, uncomplicated; F12.20 Cannabis dependence, uncomplicated; F17.210 Nicotine dependence, cigarettes, uncomplicated; F19.24 Other psychoactive substance dependence with psychoactive substance-induced mood disorder; J45.20 Mild intermittent asthma, uncomplicated; R63.4 Abnormal weight loss; Z68.1 Body mass index [BMI] 19.9 or less, adult; Z86.69 Personal history of other diseases of the nervous system and sense organs
CPT/HCPCS: 36415; 80053; 85027; 86480; 86593; 87389